=== PATIENT | male | born 1940 | race Caucasian/White ===

== ENCOUNTER 2016-12-14 09:11 | Inpatient (IN) ==
[2016-12-14] MEDS ORDERED: ZOFRAN ONE ×2 (09:30→13:17)
[2016-12-14] MEDS ORDERED: NS 1,000 ML ONE ×2 (09:30→14:47)
[2016-12-14] MEDS ORDERED: ZOFRAN IV ONE (09:58)
[2016-12-14] MEDS ORDERED: NS 1,000 ML IV ONE (09:58)
--- NOTE | 2016-12-14 09:58 | Diag Imaging Result Doc PS360 ---
EXAM: CHEST-1 VIEW HISTORY: sob TECHNIQUE: AP portable upright at 0950 COMMENT: The inspiration is less optimal than on 01/19/2015. Considering this, there has been no significant change in the appearance of the chest. No focal opacities are present. IMPRESSION: No evidence of acute disease. Electronically signed by Cody Rice 12/14/2016 9:56 AM
[2016-12-14 10:16] LABS: HEMATOCRIT 50.1 % (42.0-52.0); HEMOGLOBIN 16.8 g/dL (14.0-18.0); MANUAL DIFF NEEDED? YES; MCH 29.8 PG (27-31); MCHC 33.5 g/dL (33-37); MPV 13.1 FL (7.4-10.4); PLT 176 X1000 (130-400); RBC 5.63 XMIL (4.7-6.1)
[2016-12-14 10:26] LABS: ALBUMIN 4.6 g/dL (3.5-5.0); CALCIUM 10.8 mg/dL (8.8-10.2); POTASSIUM 4.9 mmol/L (3.5-5.1); TOTAL BILIRUBIN 0.88 mg/dL (0.20-1.00)
[2016-12-14 10:57] LABS: BANDS 4 % (0-1); LYMPHS 4 % (21-51); MONO 24 % (1-9)
--- NOTE | 2016-12-14 11:20 | PROVIDER DOCUMENTATION ---
This chart was entered by Gabby Dick Scribe, acting as scribe for Gordo Cotto MD. HPI-Abdominal Pain/GI Problem - General Chief Complaint: Nausea/Vomiting Stated Complaint: GENERAL Time Seen by Provider: 12/14/16 09:29 Source: patient Allergies/Adverse Reactions: Patient Allergies Allergy/AdvReac Type Severity Reaction Status Date / Time No Known Allergies Allergy Verified 02/07/16 01:53 Home Medications: Home Medication List Medication Instructions Recorded Confirmed Last Taken Type Gluc/Cb-MSM#1/C/Heri/Timothy/Bor 1 each PO DAILY 04/21/13 07/31/13 07/31/13 08:00 History [Osteo Bi-Flex Caplet] Dexter-3 Fatty Acids [Fish Oil] 500 mg PO DAILY 04/21/13 07/31/13 07/31/13 08:00 History Metoprolol Succinate E.r. [Toprol 25 mg PO DAILY 04/28/13 07/31/13 07/31/13 08: 00 History Xl] Albuterol [Albuterol Neb] 2.5 mg INH [id number] 07/31/13 07/31/13 07/31/13 14:00 History Doxycycline 100 mg PO BID #0 tablet 07/31/13 Unknown Rx Ipratropium [place] Neb [Atrovent 0.5 mg INH 4XDAY 07/31/13 07/31/13 07/31/13 14 :00 History Neb] Tamsulosin [Flomax] 0.4 mg PO DAILY 07/31/13 07/31/13 07/31/13 08:00 History - History of Present Illness-ABD Nature of Presenting Problems: 76 Y/O M presents to the ER with the complain of Nausea and vomiting X4 days. Pt states that he is not able keep anything down in his stomach. pt states that he is been constipated and took some laxatives 3 yesterday and 3 today and they did not helped him at all. pt denies any fever or any other symptoms. Onset/Duration: reports: 4 days ago Timing: reports: still present Associated Symptoms: reports: constipation, nausea, vomiting Review of Systems - Adult - REVIEW OF SYSTEMS - ADULT Constitutional: reports: no symptoms reported Eyes: reports: no symptoms reported Ears, Nose, Mouth & Throat: reports: no symptoms reported Cardiovascular: reports: irregular heart rate. denies: heart murmur Respiratory: reports: no symptoms reported Gastrointestinal: reports: abdominal pain (epigastric and mild RUQ and RLQ), constipation, nausea, vomiting Genitourinary: reports: no symptoms reported Musculoskeletal: reports: no symptoms reported Integumentary: reports: no symptoms reported Neurological: reports: no symptoms reported Psychiatric: reports: no symptoms reported Endocrine: reports: no symptoms reported Hematologic/Lymphatic: reports: no symptoms reported Allergic/Immunologic: reports: no symptoms reported All Other Systems: Reviewed and Negative Past History - Adult - PAST MEDICAL HISTORY-ADULT Review of Records: reports: Old Records Reviewed, Nursing Assessment Review - IMMUNIZATION STATUS Childhood Immunizations: See Nurse Assessment Flu Vaccine: See Nurse Assessment Physical Exam-General - PHYSICAL EXAM-ADULT Initial Vital Signs Reviewed: Yes - CONSTITUTIONAL General Appearance: appears well, alert - EYES Eyes: PERRL/EOMI, pink conjunctivae - NECK Neck: non-tender, full range of motion - RESPIRATORY Respiratory: no respiratory distress, no accessory muscle use - CARDIOVASCULAR Cardiovascular: irregularly irregular. negative: no edema, no murmur - GASTROINTESTINAL (ABDOMEN) Abdominal Exam: tenderness (epigastric amd mils to RUQ and RLQ). negative: guarding - MUSCULOSKELETAL Back Exam: no CVA tenderness, no vertebral tenderness Extremity: normal range of motion, non-tender - SKIN Integumentary: normal color, normal turgor, warm/dry - NEUROLOGIC Neurologic: grossly normal, no motor/sensory deficits - PSYCHIATRIC Psych/Mental Status: normal mood/affect, normal thought content, normal thought process, oriented x 3 Progress - PLAN OF CARE/RESULTS Progress/Plan/Lab Results: Vital Signs - 8 hr 12/14/16 09:14 Temperature 97.8 F Pulse Rate 96 H Respiratory Rate 20 Blood Pressure 130/71 O2 Sat by Pulse Oximetry 96 Orders Category Date Time Status 0.9% Sodium Chloride Inj [Ns] 1,000 ml Med 12/14/16 09:30 Discontinued .ROUTE As Directed Ondansetron [Zofran] Med 12/14/16 09:30 Discontinued 4 mg .ROUTE .STK-MED ONE Result Diagrams: 12/14/16 09:39 12/14/16 09:39 - EKG 1 Time of EKG reading by physician:: 10:18 EKG Read and Signed by:: Gordo Cotto EKG Interpretation (*Must complete 3 of following elements*): Abnormal Rate: 95 Rhythm: Atrila Fibrillation with premature venticular QRS: other Comments: Abnormal ECG - XRAY 1 XRAY: Bilateral XRAY Study: Chest Impression: Normal XRAY Interpretation: no evidence of acute disease by radiologist - CONSULTS/PCP/HOSPITALIST Notification #1 *Consult/PCP/Hospitalist*: Dr. Abreu Time Discussed: 11:14 Reason/Comments: Dr. Cotto consulted about the pt Departure - Departure Date of Disposition Decision: 12/14/16 Time of Disposition Decision: 11:18 DIAGNOSIS: Acute kidney injury (nontraumatic) Vomiting Qualifiers: Vomiting type: unspecified Vomiting Intractability: non-intractable Nausea presence: with nausea Qualified Code(s): R11.2 - Nausea with vomiting, unspecified Leukocytosis Qualifiers: Leukocytosis type: unspecified Qualified Code(s): D72.829 - Elevated white blood cell count, unspecified Disposition: ADMITTED INPATIENT 09 Certified Medical Emergency: Emergent Condition: Fair Referrals and Follow-Ups: Gavin Walker [Primary Care Provider] - - Critical Care Note This patient required my direct & personal management of CC.: No This chart was documented by the indicated scribe, (Gabby Dick, Cayla) and accurately reflects the services I performed and decisions made by me, Gordo Cotto MD, as attested by the provider's signature.
--- NOTE | 2016-12-14 11:23 | Diag Imaging Result Doc PS360 ---
EXAM: ABDOMEN/PELVIS W/O CONTRAST HISTORY: N/V, no BM TECHNIQUE: CT urogram without contrast COMMENT: There are no previous studies. There is apparent COPD and old granulomatous changes in the lung bases. There is a small right pleural effusion. There may be some fibrosis in the posterior costophrenic sulci. The stomach is markedly distended with fluid. There are multiple distended, fluid-filled small bowel loops throughout the abdomen. There is some gas and stool in the colon which is not distended. There is slight dilatation of the distal abdominal aorta and of the common iliac arteries particularly the right which measures 3 cm in diameter. There is no evidence of stones or hydronephrosis on the left. There are vascular calcifications in the renal arteries bilaterally. There are no definite calyceal stones on the right but there appears to be a stone in the right renal pelvis, less than 5 mm in diameter. There is no evidence of appendicitis. There is stool in the rectosigmoid colon. There is a right inguinal hernia containing small bowel loops. This demonstrates a normal or decreased caliber of the loop exiting the hernia and the in the terminal ileum. There is free fluid in the rectovesical pouch. There is calcification in the prostate gland which bulges into the base of the bladder. There are degenerative changes in the hips bilaterally and in the lumbar spine. IMPRESSION: Small bowel obstruction due to incarcerated right inguinal hernia. Small right pleural effusion. Right nephrolithiasis. Electronically signed by Cody Rice 12/14/2016 11:21 AM
[2016-12-14] MEDS ORDERED: ZOSYN 2.25 GM/NS 2.25 GM/50 ML IVPB IV SCH ×2 (11:45→12:00)
[2016-12-14 11:54] LABS: URINE CULTURE NEEDED? NO; URINE SOURCE CLEAN CATCH
[2016-12-14 11:59] LABS: BILIRUBIN URINE NEGATIVE (NEGATIVE); BLOOD URINE NEGATIVE (NEGATIVE); COLOR YELLOW; GLUCOSE URINE NEGATIVE (NEGATIVE); LEUKOCYTES URINE NEGATIVE (NEGATIVE); NITRITE URINE NEGATIVE (NEGATIVE); PROTEIN URINE 50 mg/dL (NEGATIVE); SP GRAVITY URINE 1.023; TURBIDITY URINE HAZY (CLEAR); UROBILINOGEN URINE NORMAL (NORMAL)
[2016-12-14 12:00] LABS: URINE MICRO REVIEW NEEDED? YES
[2016-12-14] MEDS ORDERED: DIPRIVAN 1% ONE (12:04)
[2016-12-14 12:05] LABS: INR 1.25; PROTIME 13.3 Seconds (9.2-11.7)
[2016-12-14] MEDS ORDERED: QUELICIN (DOSE) ONE (12:08)
[2016-12-14] MEDS ORDERED: ROBINUL ONE ×2 (12:08→13:18)
[2016-12-14] MEDS ORDERED: XYLOCAINE-MPF 2% ONE (12:08)
[2016-12-14 12:11] LABS: UR EPITHELIAL CELLS <10 /HPF (<10); URINE BACTERIA NEGATIVE /HPF; URINE CASTS GRANULAR PRESENT; URINE RBC <10 /HPF (<10); URINE WBC <10 /HPF (<10)
[2016-12-14 12:12] LABS: URINE CRYSTALS NONE SEEN; URINE SMALL ROUND CELLS NONE SEEN
[2016-12-14 12:14] LABS: PROTEIN CREAT RATIO 0.3; UR CREAT RANDOM 211.7 mg/dL (14-26); UR PROT RANDOM 72.1 mg/dL
[2016-12-14] MEDS ORDERED: NORCURON ONE (13:09)
[2016-12-14] MEDS ORDERED: STERILE WATER INJ. ONE (13:09)
[2016-12-14] MEDS ORDERED: SENSORCAINE 0.5%-EPI 1:200,000 ONE (13:12)
[2016-12-14] MEDS ORDERED: NEOSTIGMINE ONE (13:17)
[2016-12-14] MEDS ORDERED: DECADRON ONE (13:17)
[2016-12-14] MEDS ORDERED: SODIUM CHLORIDE 0.9% 10 ML ONE (13:21)
[2016-12-14] MEDS ORDERED: NEO-SYNEPHRINE ONE (13:21)
[2016-12-14 13:55] LABS: URINE SOURCE CATH
[2016-12-14 14:10] LABS: BILIRUBIN URINE NEGATIVE (NEGATIVE); BLOOD URINE NEGATIVE (NEGATIVE); COLOR YELLOW; GLUCOSE URINE NEGATIVE (NEGATIVE); LEUKOCYTES URINE NEGATIVE (NEGATIVE); NITRITE URINE NEGATIVE (NEGATIVE); PROTEIN URINE 50 mg/dL (NEGATIVE); SP GRAVITY URINE 1.024; TURBIDITY URINE HAZY (CLEAR); UROBILINOGEN URINE NORMAL (NORMAL)
[2016-12-14 14:12] LABS: URINE MICRO REVIEW NEEDED? YES
[2016-12-14 14:14] LABS: UR EPITHELIAL CELLS <10 /HPF (<10); URINE BACTERIA NEGATIVE /HPF; URINE RBC <10 /HPF (<10); URINE WBC <10 /HPF (<10)
[2016-12-14 14:18] LABS: URINE CASTS NONE SEEN
--- NOTE | 2016-12-14 15:53 | HISTORY AND PHYSICAL ---
PRIMARY CARE PHYSICIAN: Dr. Gavin Walker. SHEEPSKIN PICKLER: Dr. Diego Kwok. CHIEF COMPLAINT: Abdominal pain. HISTORY OF PRESENT ILLNESS: Mr. Pagan is a pleasant 76-year-old male with a history of BPH, COPD, and chronic atrial fibrillation who presents with a 4-day history of abdominal pain, nausea, and vomiting. He reports his symptoms started around Friday. He started having some vomiting, which progressed to some abdominal distention and abdominal pain, mostly in the right upper and lower quadrants. Symptoms persisted and he came to the ER today for evaluation. He denies any fever or chills. He denies any diarrhea, but does have some constipation despite trying some suppositories. He denies any shortness of breath or chest pain. He came to the ER, and he had labs and diagnostics done. A CT of the abdomen and pelvis revealed incarcerated inguinal hernia on the right. There was a small right pleural effusion and right nephrolithiasis. His laboratory data reveals a fairly elevated white count at 24.49. He does have some bands. His chemistry reveals acute kidney injury with a creatinine of 2.6 and a BUN of 67. He does have a mildly elevated alkaline phosphatase. Surgery has been consulted and the patient is going to be going to surgery today. In the meantime, we are going to admit him for further treatment and evaluation of incarcerated hernia and acute kidney injury. PAST MEDICAL HISTORY: 1. Chronic atrial fibrillation, not on anticoagulation. 2. COPD. 3. BPH. PAST SURGICAL HISTORY: Right knee arthroplasty and bilateral inguinal hernia repair. SOCIAL HISTORY: Patient quit smoking about 8 or 9 years ago. There is no alcohol or drug history. He is and lives with his son currently. REVIEW OF SYSTEMS: Fourteen-point review of systems was obtained and found to be negative with the exception of the HPI. ALLERGIES: None. HOME MEDICATIONS: Currently being compiled. PHYSICAL EXAMINATION: VITAL SIGNS: Blood pressure is 130/71. Heart rate is 96. Respiratory rate 20. O2 saturation 96% on room air. Temperature is 97.8 degrees. GENERAL: This is an elderly male, lying in the hospital bed in no acute distress. NEUROLOGIC: The patient is awake and alert. He follows commands without focal deficits. HEENT: Head is atraumatic and normocephalic. The sclerae are nonicteric. Oral mucosa is dry. Trachea is midline. NECK: Supple. CHEST: Clear to auscultation bilaterally. CARDIOVASCULAR: Irregular rate and rhythm. S1 and S2 noted. GASTROINTESTINAL: Slightly distended and tender to palpation diffusely, but mostly in the right upper and lower quadrants. Bowel sounds are hypoactive. EXTREMITIES: No edema, clubbing, or cyanosis. Pulses are diminished, but palpable bilaterally. DIAGNOSTIC DATA: CT of the abdomen and pelvis: Please see HPI. Chest x-ray shows COPD, but nothing acute. WBC 24.49, hemoglobin 16.8, hematocrit 50.1, and platelet count 176,000. Sodium 138, potassium 4.9, chloride 88, CO2 of 26, anion gap 24, BUN 67, creatinine 2.6 , glucose 170, calcium 10.8, AST 33, ALT 19, alkaline phosphatase 190, albumin 4.6. ASSESSMENT AND PLAN: 1. Incarcerated right inguinal hernia with associated small-bowel obstruction: Patient will be going to surgery with Dr. Watts today. We are going to give him IV fluids and start some antibiotics, as he has an elevated white count and is borderline tachycardic. We will keep him n.p.o., check an x-ray in the morning, and monitor closely. 2. Acute kidney injury: Last creatinine we have in 2012 shows a creatinine of 1.2. We are checking urine studies. CT does reveal a fairly large prostate that is calcified, so postobstructive uropathy is certainly possible, as is the possibility of prerenal azotemia. We are going to collect urine studies to check a FENa. There was no hydronephrosis on CT. Will hydrate and trend his creatinine. If no improvement, we may consider involving Nephrology and/or Urology. 3. Chronic atrial fibrillation: Rate is stable. We are getting a list of his medications. His son does state that he is not on anticoagulation. The patient denies any chest pain or shortness of breath. No palpitations. 4. Chronic obstructive pulmonary disease: Currently not in exacerbation. We will add p.r.n. nebs. Chest x-ray does not show any acute abnormalities. 5. Benign prostatic hypertrophy. Will start his Flomax tomorrow. 6. Deep vein thrombosis prophylaxis will be provided with SCDs and TEDs. Further recommendations to follow. Dictated by GOMEZ Chanel for Rashmi Lopez MD cc: GOMEZ Chanel MD Jay Pohl, MD Peter Johnson, MD The patient was seen and examined by me. I agree with the assessment and plan as dictated. MTDD
[2016-12-14] MEDS ORDERED: ZOFRAN IV PRN (16:22)
[2016-12-14] MEDS ORDERED: NS 1,000 ML IV SCH (16:22)
[2016-12-14] MEDS ORDERED: MORPHINE IV PRN (16:22)
--- NOTE | 2016-12-14 16:54 | OPERATIVE NOTE ---
PROCEDURE DATE: 12/14/2016 PROCEDURES: 1. Repair of strangulated right femoral hernia. 2. Small bowel resection with primary anastomosis. SURGEON: Anselmo Watts MD. COMMERCIAL CRABBER: Vicky. PREOPERATIVE DIAGNOSIS: Incarcerated right inguinal hernia with small-bowel obstruction. POSTOPERATIVE DIAGNOSIS: Strangulated right femoral hernia with small bowel obstruction. DESCRIPTION OF PROCEDURE: Satisfactory general endotracheal anesthesia was achieved. The abdomen and groin were prepped and draped in a sterile fashion. We made an oblique incision over the palpated mass in the right groin. We incised the subcutaneous tissue, dissected down to the hernia sac. The hernia appeared to come below the inguinal ligament. We incised the hernia sac and then inside was strangulated loop of small bowel. We enlarged the incision in the femoral canal enough to free up the loop of small bowel, so that we could deliver normal small bowel on each side of the strangulated section. We handed off the hernia sac. We clamped off the edge of the hernia sac so that we could identify the peritoneum. We then used a ISABELLE-60 to resect the strangulated segment. We clamped off the mesentery and ligated it with 3-0 silk suture ligatures. We then placed the end of the small bowel [id number], used a 3-0 silk to approximate the side-by- side. We cut off the corners and introduced the ISABELLE 60 and did a [id number] stapled anastomosis. The open end was clamped with Allis clamps and we then used a TA-45 to staple across the open end of the small bowel. We used 3-0 silks to invert this staple line. We then were able to reduce and place this stapled anastomosis back into the abdominal cavity through the femoral canal. We then proceeded to irrigate out the area with copious warm saline. I then used 0 Prolene stitches to approximate the tissue at the Wing's ligament, up to the inguinal ligament. This required a couple of stitches and then we transitioned to the firm tissue by the femoral vein and placed a couple of 0 Prolene stitches there. We did not compromise the femoral vein. Before we did this, I failed to mention that we did close the peritoneum with interrupted 3-0 Polysorb's, so we then used the Prolene's to the close the defect in the femoral canal. Again, we irrigated. We then placed 3-0 Polysorb to the subcutaneous tissue. We then closed the skin with a 4-0 Polysorb subcuticular stitch. We used 0.5 Marcaine with epinephrine in the subcutaneous tissue and dermis to achieve local wound anesthesia. He tolerated the procedure satisfactorily. Was sent to the recovery room in satisfactory condition. cc: MD Rashmi Reyes MD
[2016-12-14] MEDS: ZOSYN 2.25 GM/NS 2.25 GM/50 ML IVPB IV SCH (18:59)
[2016-12-14] MEDS: DUONEB (A & A) INH SCH ×2 (19:26→22:44)
[2016-12-14] MEDS: PERIDEX MT SCH (20:19)
[2016-12-14] MEDS ORDERED: BLISTEX MEDICATED BERRY LIP BALM TOP PRN (20:23)
[2016-12-14] MEDS ORDERED: PERIDEX MT SCH (21:00)
[2016-12-15] MEDS: ZOSYN 2.25 GM/NS 2.25 GM/50 ML IVPB IV SCH ×5 (00:26→23:07)
[2016-12-15] MEDS: NS 1,000 ML IV SCH ×4 (00:26→23:57)
[2016-12-15] MEDS: DUONEB (A & A) INH SCH ×6 (03:01→23:24)
[2016-12-15 06:09] LABS: CALCIUM 8.8 mg/dL (8.8-10.2); POTASSIUM 4.6 mmol/L (3.5-5.1)
[2016-12-15 06:36] LABS: HEMATOCRIT 40.7 % (42.0-52.0); HEMOGLOBIN 13.5 g/dL (14.0-18.0); MANUAL DIFF NEEDED? YES; MCH 29.3 PG (27-31); MCHC 33.2 g/dL (33-37); MCV 88.3 FL (81-99); MPV 13.4 FL (7.4-10.4); PLT 130 X1000 (130-400); RBC 4.61 XMIL (4.7-6.1)
[2016-12-15] MEDS ORDERED: VANCOMYCIN IV PER PHARMACY MISC SCH (07:00)
[2016-12-15 07:13] LABS: BANDS 2 % (0-1); LYMPHS 4 % (21-51); MONO 22 % (1-9)
[2016-12-15] MEDS: PERIDEX MT SCH ×2 (08:43→20:06)
--- NOTE | 2016-12-15 08:46 | Diag Imaging Result Doc PS360 ---
EXAM: ABDOMEN FLAT/UPRIGHT HISTORY: sbo TECHNIQUE: Flat and upright abdomen portable at 0820 COMMENT: There is an NG tube with its tip in the stomach. There are distended small bowel loops throughout the abdomen. There is minimal colonic gas but there is some gas in the rectum. The degree of small bowel dilatation has diminished slightly since 12/14/2016. IMPRESSION: Small bowel obstruction. Electronically signed by Cody Rice 12/15/2016 8:43 AM
[2016-12-15] MEDS ORDERED: VANCOMYCIN 1.75 GM in NS 250 ML IV ONE (09:00)
--- NOTE | 2016-12-15 17:56 | PROGRESS NOTE ---
DATE: 12/15/2016 SUBJECTIVE: The patient is resting comfortably in bed. His O2 saturations do drop when he is taken off of supplemental oxygen. OBJECTIVE: Vital Signs: Temperature 98.7 degrees, blood pressure 117/67, heart rate 114, respirations 20, O2 saturation is 86% on room air, 95% on 3 L nasal cannula. General: This is a chronically ill-appearing, elderly male, lying in bed, in no acute distress. Head: Normocephalic, atraumatic. Heart: S1, S2. Normal. Tachycardic. Lungs: Equal air entry bilaterally. No crackles. No rales. No wheezing. Abdomen: Positive bowel sounds. Soft. Extremities: No edema. No cyanosis. No calf tenderness. Neurologic: The patient is alert and oriented x3. The patient is hard of hearing. LABS: White blood cell count 16, hemoglobin 13, hematocrit 40 platelets 130,000. Sodium 138, potassium 4.6, chloride 97, CO2 32, BUN 64, creatinine 2.2, glucose 129, calcium 8.8. ASSESSMENT AND PLAN: 1. Repair of strangulated right femoral hernia with small bowel resection. Management as per the general surgeon. 2. Leukocytosis. Continue on IV antibiotic therapy. 3. Chronic obstructive pulmonary disease. Continue on bronchodilator therapy plus supplemental oxygen. 4. Acute kidney injury on chronic kidney disease. Continue with gentle IV fluid hydration. 5. Atrial fibrillation. Will keep the patient on telemetry. The patient is currently NPO. 6. Deep vein thrombosis prophylaxis. Continue on SCDs. cc: Rashmi Lopez MD
[2016-12-16] MEDS: DUONEB (A & A) INH SCH ×6 (03:32→23:16)
[2016-12-16] MEDS: ZOSYN 2.25 GM/NS 2.25 GM/50 ML IVPB IV SCH ×4 (05:42→23:51)
--- NOTE | 2016-12-16 05:56 | EKG Report ---
Test Performed on : 12/14/2016 10:18:21 AM Test Reason : CP Blood Pressure : / mmHG Vent. Rate : 095 BPM Atrial Rate : 110 BPM P-R Int : 000 ms QRS Dur : 100 ms QT Int : 350 ms P-R-T Axes : 000 090 -75 degrees QTc Int : 439 ms Atrial fibrillation. with premature ventricular or aberrantly conducted complexes. Rightward axis ST \T\ T wave abnormality, consider inferolateral ischemia Abnormal ECG When compared with ECG of 23-JAN-2016 12:00, Vent. rate has increased BY 53 BPM Non-specific change in ST segment in Anterior leads T wave inversion now evident in Inferior leads T wave inversion now evident in Anterolateral leads QT has lengthened Unconfirmed Result
[2016-12-16] MEDS: NS 1,000 ML IV SCH (06:27)
[2016-12-16 06:50] LABS: BASO% 0.6 % (0.0-0.8); HEMATOCRIT 38.2 % (42.0-52.0); HEMOGLOBIN 12.1 g/dL (14.0-18.0); LYMPH# 0.47 X1000 (1.2-3.4); LYMPH% 3.4 % (20.5-51.1); MCH 29.5 PG (27-31); MCHC 31.7 g/dL (33-37); MCV 93.2 FL (81-99); MONO% 39.9 % (1.7-9.3); MPV 13.4 FL (7.4-10.4); NEUT% 56.1 % (42.2-75.2); PLT 95 X1000 (130-400)
--- NOTE | 2016-12-16 06:55 | EKG Report ---
Test Performed on : 12/16/2016 06:29:39 AM Test Reason : afib Blood Pressure : / mmHG Vent. Rate : 090 BPM Atrial Rate : 250 BPM P-R Int : 000 ms QRS Dur : 106 ms QT Int : 382 ms P-R-T Axes : 000 082 -81 degrees QTc Int : 467 ms Atrial fibrillation. with premature ventricular or aberrantly conducted complexes. ST \T\ T wave abnormality, consider inferior ischemia Abnormal ECG When compared with ECG of 14-DEC-2016 10:18, (Unconfirmed) No significant change was found Confirmed by Lorie Morton MD ([id number]) on 12/16/2016 9:18:52 AM
[2016-12-16 07:00] LABS: CALCIUM 8.4 mg/dL (8.8-10.2); MAGNESIUM 2.5 mg/dL (1.5-2.7); POTASSIUM 4.1 mmol/L (3.5-5.1)
[2016-12-16 07:55] LABS: MANUAL DIFF NEEDED? NO
[2016-12-16] MEDS: PERIDEX MT SCH ×2 (08:25→23:51)
[2016-12-16] MEDS ORDERED: NORCO-10 PO PRN (10:44)
[2016-12-16] MEDS: D5 1/2 NS 1,000 ML IV SCH ×2 (10:59→23:54)
--- NOTE | 2016-12-16 15:52 | PROGRESS NOTE ---
DATE: 12/16/2016 SUBJECTIVE: The patient pulled out his NG tube overnight. He has no complaints at this time. He is resting comfortably in bed. OBJECTIVE: Vital Signs: Temperature 98 degrees, blood pressure 119/77, heart rate 95, respirations 18, O2 saturations 99% on 4 L nasal cannula. General: This is an elderly male, lying in bed, in no acute distress. Head: Normocephalic, atraumatic. Heart: S1, S2. Normal. Tachycardic. Lungs: Clear to auscultation bilaterally. Abdomen: Positive bowel sounds. Soft. Extremities: No edema. No cyanosis. No calf tenderness. Neurologic: The patient is alert and oriented x3. LABORATORY DATA: White blood cell count 13, hemoglobin 12, hematocrit 38, platelets 95,000. Sodium 147, potassium 4.1, chloride 105, CO2 32, BUN 52, creatinine 1.5, glucose 106, magnesium 2.5. ASSESSMENT AND PLAN: 1. Repair of strangulated right femoral hernia with small bowel obstruction. Management as per the general surgeon. 2. Leukocytosis. Improved. Continue on IV antibiotic therapy. 3. Chronic obstructive pulmonary disease. Continue with bronchodilator therapy. 4. Acute kidney injury on chronic kidney disease. Improving daily. Continue on IVF. 5. Hypernatremia. We will start the patient on D5 half-normal saline. 6. Thrombocytopenia. We will continue to monitor the patient's platelet count closely. The patient is not on any heparin products. 7. Atrial fibrillation. The patient is rate controlled. cc: Rashmi Lopez MD MTDD
[2016-12-17] MEDS: DUONEB (A & A) INH SCH ×6 (04:01→23:34)
[2016-12-17 06:10] LABS: HEMATOCRIT 40.5 % (42.0-52.0); HEMOGLOBIN 12.8 g/dL (14.0-18.0); MCH 29.8 PG (27-31); MCHC 31.6 g/dL (33-37); MCV 94.4 FL (81-99); MPV 13.7 FL (7.4-10.4); RBC 4.29 XMIL (4.7-6.1)
[2016-12-17 06:30] LABS: CALCIUM 8.3 mg/dL (8.8-10.2); POTASSIUM 4.1 mmol/L (3.5-5.1)
--- NOTE | 2016-12-17 06:36 | PROGRESS NOTE ---
DATE: 12/17/2016 SUBJECTIVE: The patient is somewhat confused over the night but no major issues. He had 3 bowel movements recorded. OBJECTIVE: Vital Signs: Patient is currently afebrile. His vital signs are stable. General: No acute distress but slightly confused. Cardiovascular: Regular rate and rhythm. Lungs: Grossly clear. Abdomen: Soft. Minimally distended. Groin: His groin incision is healing well. LABORATORY: None from this morning currently. He does have labs ordered that are pending. ASSESSMENT/PLAN: A 76-year-old, male status post repair of strangulated femoral hernia. Postoperative state: At this time, he does have some return of bowel function. He is denying any nausea but I am concerned that his mental status might be somewhat difficult to monitor. I will start normal clear liquids but I do want the nurses to monitor him and be present while he is eating to make sure he is actually able to tolerate and swallow without any signs of aspiration. cc: MD Rashmi Houston MD
[2016-12-17] MEDS: ZOSYN 2.25 GM/NS 2.25 GM/50 ML IVPB IV SCH ×3 (06:48→19:13)
[2016-12-17] MEDS: D5 1/2 NS 1,000 ML IV SCH ×3 (08:27→21:13)
[2016-12-17] MEDS: NEUTRA-PHOS PO SCH ×4 (08:29→21:12)
[2016-12-17] MEDS: PERIDEX MT SCH ×2 (08:53→21:13)
[2016-12-17] MEDS ORDERED: VANCOMYCIN 1.4 GM in NS 250 ML IV SCH (09:00)
--- NOTE | 2016-12-17 12:11 | PROGRESS NOTE ---
DATE: 12/17/2016 SUBJECTIVE: The patient is resting comfortably in bed. He was started on a clear liquid diet today. OBJECTIVE: Vital Signs: Temperature 98 degrees, blood pressure 116/70, heart rate 86, respirations 16, O2 saturations 97% on 2 L nasal cannula. General: This is an elderly man sitting up in bed eating breakfast. Heart: S1, S2 normal. Regular rate and rhythm. Lungs: Clear to auscultation bilaterally. No crackles. No rales. Abdomen: Positive bowel sounds. Soft, nontender, nondistended. Extremities: No edema. No cyanosis. No calf tenderness. Neurologic: The patient is alert and oriented x3. He is hard of hearing. LABS: White blood cell count 9, hemoglobin 12, hematocrit 40, platelets 107. Sodium 144, potassium 4.1, chloride 106, CO2 29, BUN 36, creatinine 1.2, glucose 117, phosphorus 1.7. ASSESSMENT AND PLAN: 1. Repair of a strangulated right femoral hernia with small bowel obstruction. Management as per the general surgeon. 2. Leukocytosis. Resolved. Continue on intravenous antibiotic therapy. 3. Acute kidney injury. Improved. 4. Chronic obstructive pulmonary disease. Continue on supplemental oxygen and bronchodilator therapy. 5. Thrombocytopenia. Stable. 6. Atrial fibrillation. Continue to monitor the patient on telemetry. The patient appears to be rate controlled. 7. Benign prostatic hypertrophy. Will restart the patient's Flomax. 8. Will consult physical therapy. cc: Rashmi Lopez MD
[2016-12-17] MEDS: FLOMAX PO SCH (21:13)
[2016-12-17 23:13] LABS: URINE CULTURE NEEDED? NO; URINE MICRO REVIEW NEEDED? NO; URINE SOURCE CATH
[2016-12-17 23:18] LABS: BILIRUBIN URINE NEGATIVE (NEGATIVE); BLOOD URINE TRACE (NEGATIVE); COLOR YELLOW; GLUCOSE URINE 150 mg/dL (NEGATIVE); LEUKOCYTES URINE NEGATIVE (NEGATIVE); NITRITE URINE NEGATIVE (NEGATIVE); PH URINE 6.5; PROTEIN URINE 30 mg/dL (NEGATIVE); SP GRAVITY URINE 1.026; TURBIDITY URINE CLEAR (CLEAR); UR EPITHELIAL CELLS <10 /HPF (<10); URINE BACTERIA NEGATIVE /HPF; URINE RBC <10 /HPF (<10); URINE WBC <10 /HPF (<10); UROBILINOGEN URINE NORMAL (NORMAL)
[2016-12-18] MEDS: ZOSYN 2.25 GM/NS 2.25 GM/50 ML IVPB IV SCH ×4 (01:52→18:47)
[2016-12-18] MEDS: DUONEB (A & A) INH SCH ×6 (03:39→22:51)
[2016-12-18 05:36] LABS: AGAP 8; BUN 25 mg/dL (8-22); CALCIUM 7.9 mg/dL (8.8-10.2); CHLORIDE 108 mmol/L (98-107); COSMO 290; POTASSIUM 4.1 mmol/L (3.5-5.1); SODIUM 143 mmol/L (136-145); TCO2 27 mmol/L (25-35)
[2016-12-18] MEDS ORDERED: SODIUM PHOSPHATE 30 MMOL in NS 250 ML IV ONE (06:00)
[2016-12-18 06:21] LABS: BASO% 0.2 % (0.0-0.8); EOS# 0.08 X1000 (0.0-0.7); EOS% 0.9 % (0.0-10.0); HEMATOCRIT 37.5 % (42.0-52.0); HEMOGLOBIN 12.1 g/dL (14.0-18.0); IMM GRAN# 0.13 X1000 (0.0-0.04); IMM GRAN% 1.5 % (0.0-0.5); LYMPH# 1.02 X1000 (1.2-3.4); LYMPH% 11.7 % (20.5-51.1); MANUAL DIFF NEEDED? YES; MCH 29.5 PG (27-31); MCHC 32.3 g/dL (33-37); MCV 91.5 FL (81-99); MONO# 2.24 X1000 (0.11-0.59); MONO% 25.7 % (1.7-9.3); MPV 12.6 FL (7.4-10.4); PLT 127 X1000 (130-400)
[2016-12-18] MEDS: D5 1/2 NS 1,000 ML IV SCH ×2 (06:31→10:29)
[2016-12-18 07:27] LABS: EOS 2 % (1-10); LYMPHS 6 % (21-51); MONO 22 % (1-9)
[2016-12-18] MEDS: TOPROL XL PO SCH ×2 (08:41→08:56)
[2016-12-18] MEDS: PERIDEX MT SCH ×2 (08:42→20:05)
--- NOTE | 2016-12-18 13:22 | CONSULTATION ---
DATE OF CONSULTATION: 12/18/2016 CONCLUSION: The patient has a positive blood culture for Streptococcus parasanguis and a coagulase-negative Staphylococcus. I think this blood culture is a contaminant. RECOMMENDATIONS: Because the blood culture is a contaminant no antibiotic therapy is indicated. DISCUSSION: The patient is status post repair of the strangulated right femoral hernia and small bowel resection with primary repair. He had 2 blood cultures drawn 1 of which showed the organisms mentioned above. The patient has been afebrile and his white count has been normal. He has not had any shaking chills. Patient's lab studies show a CBC with a white count of 8700, hemoglobin 12.1, and platelet count 127,000. Creatinine is 0.9. GFR is greater than 60. Urinalysis showed no white cells or bacteria. REVIEW OF SYSTEMS: Eyes and Ears: The patient has decreased hearing but his vision is still good. Neck: No stiffness. Respiratory: The patient does have an occasional cough and dyspnea on exertion due to COPD. Cardiac: No chest pain or palpitations. GI : The patient was having difficulty passing his stool due to the strangulated hernia but since it has been fixed he has been able to pass his bowel movements. Genitourinary: The patient has difficulty passing his urine and it is thought to be secondary to benign prostatic hypertrophy. Bones, joints, muscles: No swollen joints or muscle aches. Endocrine: Patient does not have diabetes or thyroid disease. Neurologic: The patient has decreased hearing. He does not have seizures. He does not have dizzy spells or motor or sensory loss. Integument: No rashes. The remainder of the patient's review of systems was completed and was negative. PREVIOUS HOSPITALIZATIONS AND OPERATIONS: He has had hernia repairs in the past. He has also had a total knee arthroplasty. MEDICAL DISEASES: Positive for benign prostatic hypertrophy and COPD. INFECTIOUS DISEASE HISTORY: Negative for pneumonia and UTI. FAMILY HISTORY: Positive for hypertension and cancer. SOCIAL HISTORY: The patient lives in [place]. His granddaughter lives with him. HOME MEDICATIONS: Include Atrovent inhaler, albuterol inhaler, and Flomax. SOCIAL HISTORY: Stopped smoking cigarettes 7 years ago. He does not drink alcoholic beverages or abuse drugs. He does not have any pets at home. PHYSICAL EXAMINATION: Vital Signs: Temperature is 97.8 degrees, pulse 85, respirations 16, blood pressure 111/57. Generally: This is a fairly healthy-appearing, elderly male. He is in no acute distress. Head, eyes, ears, nose, and throat: His vision seems intact. He has a decrease in his hearing. His oral hygiene was good. Neck: No meningismus. Thorax: Patient has an increased AP diameter. Lungs: Clear to auscultation. Cardiovascular: Heart rate is irregular. Peripheral pulses are palpable. Abdomen: Soft and nontender. The patient's incision in the groin area is intact. Neurologic: Patient is awake. He can move his extremities. There is no tremor. His sensation is intact to touch. I was unable to evaluate the patient's memory because he wanted his son to do the talking for him as regarding his medical history. Integument: No rash noted. Thank you for the consult. I am signing off now but I am available to see the patient on a p.r.n. basis. cc: MD Rashmi Browne MD MTDD
--- NOTE | 2016-12-18 14:28 | PROGRESS NOTE ---
DATE: 12/18/2016 SUBJECTIVE: The patient states that he feels a lot better today. He is sitting up, eating breakfast. He was noted to be retaining urine and a Veloz catheter was placed. OBJECTIVE: Vital Signs: Temperature 98.6 degrees, blood pressure 111/57, heart rate 78, respirations 14, O2 saturations 95% on 2 L nasal cannula. General: This is an elderly male, sitting up in bed, in no acute distress. Head: Normocephalic, atraumatic. Heart: S1, S2. Normal. Regular rate and rhythm. Lungs: Clear to auscultation bilaterally. Abdomen: Positive bowel sounds. Soft, nontender, nondistended. Extremities: No edema. No cyanosis. Neurologic: The patient is hard of hearing, but alert and oriented x3. LABS: White blood cell count 8.7, hemoglobin 12, hematocrit 37, platelets 127, 000. Sodium 143, potassium 4.1, chloride 108, CO2 27, BUN 25, creatinine 0.9, glucose 113. Phosphorus 1.4, magnesium 1.9. ASSESSMENT AND PLAN: 1. Repair of a strangulated right femoral hernia with small bowel obstruction. The patient is doing well and tolerating his diet. Further management as per the general surgeon. 2. Leukocytosis. Resolved. 3. Acute kidney injury. Resolved. 4. Benign prostatic hypertrophy. The patient has a Veloz catheter in place due to urinary retention. We will place the patient on Uroxatral. The patient may require outpatient Urology followup upon discharge. 5. Atrial fibrillation. The patient is rate controlled. 6. Bacteremia. This is a contaminant. 7. Hypophosphatemia. Will replace the patient's phosphorus. 8. Continue with physical therapy. cc: Rashmi Lopez MD [facility] HEALTH SYSTEMBalbir
[2016-12-18] MEDS: FLOMAX PO SCH (20:05)
[2016-12-18] MEDS: UROXATRAL PO SCH (20:05)
[2016-12-19] MEDS: ZOSYN 2.25 GM/NS 2.25 GM/50 ML IVPB IV SCH ×5 (00:39→18:33)
[2016-12-19] MEDS: D5 1/2 NS 1,000 ML IV SCH ×3 (00:40→21:12)
[2016-12-19] MEDS: DUONEB (A & A) INH SCH ×6 (03:46→23:18)
[2016-12-19 06:27] LABS: BASO% 0.1 % (0.0-0.8); EOS# 0.07 X1000 (0.0-0.7); HEMATOCRIT 37.3 % (42.0-52.0); HEMOGLOBIN 11.9 g/dL (14.0-18.0); IMM GRAN# 0.15 X1000 (0.0-0.04); IMM GRAN% 2.1 % (0.0-0.5); LYMPH# 0.77 X1000 (1.2-3.4); LYMPH% 10.8 % (20.5-51.1); MANUAL DIFF NEEDED? YES; MCH 28.9 PG (27-31); MCHC 31.9 g/dL (33-37); MCV 90.5 FL (81-99); MONO# 2.31 X1000 (0.11-0.59); MONO% 32.4 % (1.7-9.3); MPV 12.7 FL (7.4-10.4); NEUT% 53.6 % (42.2-75.2); PLT 159 X1000 (130-400); RBC 4.12 XMIL (4.7-6.1)
[2016-12-19 06:32] LABS: AGAP 6; ALBUMIN 2.8 g/dL (3.5-5.0); BUN 19 mg/dL (8-22); CALCIUM 7.5 mg/dL (8.8-10.2); CHLORIDE 109 mmol/L (98-107); COSMO 284; POTASSIUM 4.2 mmol/L (3.5-5.1); SODIUM 141 mmol/L (136-145); TCO2 26 mmol/L (25-35)
[2016-12-19 07:21] LABS: BANDS 6 % (0-1); EOS 2 % (1-10); LYMPHS 14 % (21-51); MONO 18 % (1-9)
[2016-12-19] MEDS: PERIDEX MT SCH ×2 (10:16→21:13)
[2016-12-19] MEDS: TOPROL XL PO SCH (10:17)
--- NOTE | 2016-12-19 10:17 | Diag Imaging Result Doc PS360 ---
FLAT/UPRIGHT ABD/1 VIEW CHEST - 12/19/2016 INDICATION: post bowel resection for strangulation TECHNIQUE: Three views COMPARISON: 12/15/2016 FINDINGS: There are probably trace pleural effusions. Otherwise the chest is quite clear. There are surgical suture lines at the right lower quadrant. There are numerous abnormally gas-distended loops of small bowel. Overall the caliber has decreased somewhat compared with prior, and now there is some gas throughout the colon and rectum. However the distended small bowel loops remain abnormal. IMPRESSION: Improvement in the proximal small bowel obstruction, with persistent abnormally dilated small bowel loops. Electronically signed by Cali Sanchez 12/19/2016 10:14 AM
--- NOTE | 2016-12-19 12:16 | PROGRESS NOTE ---
DATE: 12/19/2016 SUBJECTIVE: The patient is very hard of hearing. Patient reports feeling fine. Sitting up in a chair now. Eating okay. OBJECTIVE: Vital Signs: Temperature 97.6, heart rate 86, respiratory rate 20, blood pressure 120/60, O2 saturation 98% on room air. General Examination: This is a 76-year-old male, lying in bed, in no acute distress. HEENT: Head is normocephalic, atraumatic. Anicteric sclerae and pale conjunctivae. Mucous membranes moist. Neck: Supple. No JVD noted. No carotid bruits. Cardiovascular: S1, S2 heard. Regular rate and rhythm. Respiratory: Clear bilaterally to auscultation. No work of breathing or using accessory muscles. Abdomen: Soft. Nontender to palpation. Bowel sounds present. No organomegaly. Extremities: No clubbing, cyanosis, or edema. Peripheral pulses present in both legs. Neurological: Patient alert and oriented x3. Able to move 4 extremities. Cranial nerves 2 through 12 grossly normal. LABORATORY DATA: White cell count 7.12, hemoglobin 11.9, hematocrit 37.3, platelets 159,000. BMP unremarkable. ASSESSMENT AND PLAN: 1. Status post repair of strangulated right femoral hernia with small bowel obstruction. Patient is doing fine. General surgery is following this patient. Abdomen x-ray from today has shown improvement of this condition. General surgery is following this patient. 2. Acute kidney injury, resolved. 3. Benign prostatic hypertrophy. Yesterday he developed urinary retention so it was needed to place a Veloz catheter. The patient has been started on Uroxatral. The patient will need to be seen by a urologist as an outpatient. 4. Atrial fibrillation, rate controlled. Will continue home medications. 5. Hypophosphatemia, resolved. 6. Physical deconditioning. Physical therapy working with this patient. 7. If tomorrow the patient is doing fine and eating okay he will be discharged home with home health. cc: MD Rashmi Us MD
[2016-12-19] MEDS: UROXATRAL PO SCH (21:13)
[2016-12-19] MEDS: FLOMAX PO SCH (21:13)
[2016-12-19] MEDS ORDERED: NS IV ONE (23:28)
[2016-12-19] MEDS ORDERED: SODIUM PHOSPHATE IV ONE (23:28)
[2016-12-20] MEDS: ZOSYN 2.25 GM/NS 2.25 GM/50 ML IVPB IV SCH ×2 (00:05→06:25)
[2016-12-20] MEDS: DUONEB (A & A) INH SCH ×4 (03:22→17:53)
[2016-12-20] MEDS: PERIDEX MT SCH (08:32)
[2016-12-20] MEDS: TOPROL XL PO SCH (08:34)
[2016-12-20] MEDS ORDERED: SALINE LOCK IV FLUID XX ONE (10:41)
[2016-12-20 13:41] VITALS: BP 106/59
--- NOTE | 2016-12-22 16:12 | DISCHARGE SUMMARY ---
ADMISSION DATE: 12/14/2016 DISCHARGE DATE: 12/20/2016 PERTINENT PROCEDURES: 1. Abdomen and pelvis CT showed small bowel obstruction due to incarcerated right inguinal hernia, right pleural effusion, right nephrolithiasis. 2. Underwent repair of a strangulated right femoral hernia and small bowel resection with primary anastomosis performed by Dr. Anselmo Watts. 3. Abdominal x-ray showed improvement of the proximal small bowel obstruction with persistent abnormality, dilated small bowel loops. DISCHARGE DIAGNOSES: 1. Status post repair of strangulated right femoral hernia with small bowel obstruction improved. Being discharged home today. 2. Acute kidney injury resolved. 3. Benign prostatic hypertrophy. Continue with Uroxatral and follow up outpatient with urologist. 4. Atrial fibrillation, rate controlled. Continue with metoprolol. 5. Hypophosphatemia resolved. 6. Physical deconditioning. Patient worked with physical therapy. He is going to be discharged home with [facility]. HOSPITAL COURSE: Mr. Pagan is a 76-year-old male with a history of BPH, COPD , chronic atrial fibrillation who presented with a 4-day history of abdominal pain, nausea and vomiting. He started having some vomiting that progressed to abdominal distention, abdominal pain mostly in the right lower quadrant. His symptoms persisted so he came to the ED for evaluation. A CT of the abdomen and pelvis revealed incarcerated inguinal hernia on the right with a small right pleural effusion, right nephrolithiasis. His laboratory data revealed a fairly elevated white count of 24. Chemistry revealed acute kidney injury with creatinine of 2.4 and BUN 67 as well as mildly elevated alkaline phosphatase. General Surgery was consulted. He was started on IV fluids as well as IV antibiotics. He did undergo a repair of a strangulated right femoral hernia with small bowel resection with primary anastomosis by Dr. Anselmo Watts. Abdominal x-ray continued to showed small bowel obstruction. A follow-up abdominal x-ray showed improvement in the proximal small bowel obstruction with persistent abnormally dilated small bowel loops. Initially the patient was thought to be bacteremic, however, the blood culture was a contaminant so no antibiotic therapy was indicated. Dr. Kennedy Pires signed off on the case. The patient did have some urinary retention where they had to place a Veloz. He was continued on his home BPH medications as well as added Uroxatral. He will need to follow up with the urologist as outpatient. The patient has been working with Physical Therapy. He will be discharged home with [facility]. He is tolerating his diet. Dr. Rodriguez is discharging the patient home today. VITAL SIGNS ON DISCHARGE: Temperature is 98.3 degrees, heart rate 59, respirations 16, blood pressure is 130/77, O2 is 100% on room air. DISCHARGE DIET: Mechanical soft. DISCHARGE MEDICATIONS: 1. , 1 each p.o. q.4 hours p.r.n. pain. 2. Albuterol nebulizer 2.5 mg inhaled RT q.4 hours p.r.n. 3. Uroxatral 10 mg p.o. at bedtime. 4. Atrovent nebulizer 0.5 mg inhaled 4 times a day. 5. Toprol-XL 25 mg p.o. daily with instructions to hold medication if heart rate is less than 60 or systolic blood pressure is less than 100. 6. Flomax 0.4 mg p.o. daily. DISPOSITION: The patient is being discharged home. FOLLOWUP: He will follow up with his primary care physician, Dr. Gavin Walker, as well as seeing a urologist as an outpatient. The patient can return to the ED for any worsening of symptoms. TOTAL TIME SPENT ON DISCHARGE: 34 minutes. Dictated by GOMEZ Cotto for Bala William MD cc: MD Bala Castillo MD Katherine Takundwa, MD MTDD
== END 2016-12-20 16:08 | disposition home or self-care (01) ==
LOC: SUATTDRO → ED 09:11 → SUATTDRO 17:43 → 4N 17:43
PROVIDERS: ADMIT Internal Medicine; ATTEND Internal Medicine

== ENCOUNTER 2018-07-21 08:49 | Inpatient (IN) ==
[2018-07-21] MEDS ORDERED: NS 1,000 ML IV ONE ×3 (09:01→11:59)
[2018-07-21] MEDS ORDERED: NS 500 ML IV ONE (09:02)
[2018-07-21] MEDS ORDERED: VANCOMYCIN 1 GM/NS 1 GM/250 ML IVPB IV ONE (09:02)
[2018-07-21] MEDS ORDERED: VERSED IV ONE ×2 (09:09→11:25)
[2018-07-21] MEDS ORDERED: NORCURON IV ONE ×3 (09:10→11:25)
[2018-07-21] MEDS ORDERED: NORCURON ONE (09:13)
[2018-07-21] MEDS ORDERED: VERSED ONE (09:13)
--- NOTE | 2018-07-21 09:13 | PROVIDER DOCUMENTATION ---
HPI-General Adult - General Chief Complaint: Altered Mental Status Stated Complaint: WEAKNESS Time Seen by Provider: 07/21/18 09:01 Source: family Allergies/Adverse Reactions: Patient Allergies Allergy/AdvReac Type Severity Reaction Status Date / Time No Known Allergies Allergy Verified 06/05/17 01:01 Home Medications: Home Medication List Medication Instructions Recorded Confirmed Last Taken Type NK [No Home Medications] 06/05/17 06/05/17 Unknown History - History of Present Illness -Gen Adult Nature of Presenting Problems: Patient is a 78 year old white male who presents with unresponsiveness and respiratory distress. Fingerstick glucose is normal. No reported chest pain, fever, or seizure activity. Followed by Dr. Walker. Review of Systems - Adult - REVIEW OF SYSTEMS - ADULT ROS:: limited per condition Constitutional: reports: see HPI Past History - Adult - PAST MEDICAL HISTORY-ADULT Review of Records: reports: Old Records Reviewed, Nursing Assessment Review, Medications Reviewed, Social history reviewed & non-contributory. Major Childhood Illnesses: reports: denies history Cardiovascular: reports: denies history Respiratory: reports: COPD Gastrointestinal: reports: denies history Obstetrical/Gynecological: reports: denies history Genitourinary: reports: denies history Musculoskeletal: reports: denies history Neurological: reports: denies history Psychiatric: reports: denies history Endocrine/Immune: reports: denies history Other Conditions: reports: denies history - PRIOR SURGERIES/PROCEDURES Surgical/Procedure History: reports: reviewed, not pertinent - IMMUNIZATION STATUS Childhood Immunizations: See Nurse Assessment Flu Vaccine: See Nurse Assessment - FAMILY HISTORY Family History: reviewed, not pertinent Physical Exam-General - CONSTITUTIONAL General Appearance: other (initially unreponsive with labored shallow respirations) - EYES Eyes: other (unequal irregular pupils) - HEAD, EARS, NOSE, MOUTH & THROAT HENMT: other (clear) - NECK Neck: supple - RESPIRATORY Respiratory: decreased breath sounds, other (bilateral rhonchi R.L) - CARDIOVASCULAR Cardiovascular: regular rate, rhythm - GASTROINTESTINAL (ABDOMEN) Abdominal Exam: soft. negative: guarding, rebound - LYMPHATIC Lymphatic: no adenopathy - MUSCULOSKELETAL Back Exam: no CVA tenderness Extremity: non-tender Peripheral Pulses: radial (R): 1+, radial (L): 1+ - SKIN Integumentary: other (decreased turgor) - NEUROLOGIC Neurologic: other (nonfocal, uncooperative to exam) Progress - PLAN OF CARE/RESULTS Progress/Plan/Lab Results: Vital Signs - 8 hr 07/21/18 09:00 07/21/18 09:02 07/21/18 09:05 Pulse Rate 113 H 106 H 102 H Respiratory Rate 33 H 33 H 37 H Blood Pressure 131/54 118/66 O2 Sat by Pulse Oximetry 77 L Orders Category Date Time Status Veloz Cath Insertion ORDERED Care 07/21/18 09:02 Active IV Insertion ORDERED Care 07/21/18 09:02 Active Intake and Output-Strict ORDERED Care 07/21/18 09:02 Active Notify MD/PA/GOMEZ for exam NOW Care 07/21/18 09:02 Active RT [Respiratory Therapy Evaluation] ORDERED Care 07/21/18 09:05 Active Repeat Vital Signs .Blood Pressure Care 07/21/18 09:02 Active Repeat Vital Signs .Heart Rate Care 07/21/18 09:02 Active Repeat Vital Signs .Oxygen Saturation Care 07/21/18 09:02 Active Repeat Vital Signs .Respiratory Rate Care 07/21/18 09:02 Active Repeat Vital Signs .Temp Care 07/21/18 09:02 Active Saline Loc NOW Care 07/21/18 09:01 Active CHEST-PORTABLE [RAD] Stat Exams 07/21/18 09:[address] HEAD W/O CONTRAST [CT] Stat Exams 07/21/18 09:12 Ordered ABG [RESP] Routine Lab 07/21/18 09:01 Ordered BLOOD CULTURE [BLDCUL] Stat Lab 07/21/18 09:06 Ordered CBC WITH DIFF [HEME] Stat Lab 07/21/18 09:06 Ordered COMPREHENSIVE METABOLIC PANEL [CHEM] Stat Lab 07/21/18 09:06 Ordered LACTATE, PLASMA [CHEM] Stat Lab 07/21/18 09:06 Ordered LACTATE, PLASMA [CHEM] Timed Lab 07/21/18 09:02 Ordered PRO B-NATRIURETIC PEPTIDE Stat Lab 07/21/18 09:06 Ordered TROPONIN T Stat Lab 07/21/18 09:03 Ordered 0.9% Sodium Chloride Inj [Ns] 1,000 ml Med 07/21/18 09:01 Active IV 999 mls/hr 0.9% Sodium Chloride Inj [Ns] 1,000 ml Med 07/21/18 09:02 Discontinued IV As Directed 0.9% Sodium Chloride Inj [Ns] 100 ml Med 07/21/18 09:15 Discontinued Vasopressin [Pitressin] 40 unit IV As Directed 0.9% Sodium Chloride Inj [Ns] 500 ml Med 07/21/18 09:02 Discontinued IV 999 mls/hr 0.9% Sodium Chloride Inj [Ns] 80 ml Med 07/21/18 09:15 Ordered Midazolam [Versed] 100 mg IV As Directed Dextrose 5%-0.45% NaCl Inj [D5 1/2 Ns] 250 ml Med 07/21/18 09:15 Active Norepinephrine [Levophed] 8 mg IV As Directed Dextrose 5%-Water Inj [D5w] 250 ml Med 07/21/18 09:15 Active Epinephrine 8 mg IV As Directed Midazolam [Versed] Med 07/21/18 09:09 Discontinued 5 mg IV NOW ONE Vancomycin 1 gm/Ns Med 07/21/18 09:02 Active 1 gm in 250 ml IV NOW Vecuronium [Norcuron] Med 07/21/18 09:10 Discontinued 70 mg IV NOW ONE Pulse Oximetry Stat Oth 07/21/18 09:01 Active patients neurologic status improved dramatically , now awake and alert, no longer needs intubation but will start BIPAP Result Diagrams: 07/21/18 09:00 07/21/18 09:00 - CONSULTS/PCP/HOSPITALIST Notification #1 *Consult/PCP/Hospitalist*: MARTIN Caro report given Time Discussed: 10:30 Reason/Comments: admit to Dr. Rodriguez Consult Disposition: Admit Departure - Departure Date of Disposition Decision: 07/21/18 Time of Disposition Decision: 10:37 DIAGNOSIS: Thrombocytopenia Altered mental state Qualifiers: Altered mental status type: unspecified Qualified Code(s): R41.82 - Altered mental status, unspecified Leukocytosis Qualifiers: Leukocytosis type: unspecified Qualified Code(s): D72.829 - Elevated white blood cell count, unspecified Disposition: ADMITTED INPATIENT 09 Certified Medical Emergency: Emergent Condition: Critical Referrals and Follow-Ups: Gavin Walker MD [Primary Care Provider] - - Critical Care Note This patient required my direct & personal management of CC.: No Attestation - Physician/ GERALDO Attestation Patient care was provided by Advanced Practice Provider:: No The physician spent face to face time with patient:: Yes Advanced Practice Provider documentation review:: Supervising physician onsite and consulted in the evaluation and care of this patient. The physician did have a face to face encounter with the patient.
[2018-07-21] MEDS ORDERED: EPINEPHRINE 8 MG in D5W 250 ML IV SCH (09:15)
[2018-07-21] MEDS ORDERED: LEVOPHED 8 MG in D5 1/2 NS 250 ML IV SCH (09:15)
[2018-07-21] MEDS ORDERED: PITRESSIN 40 UNIT in NS 100 ML IV SCH (09:15)
[2018-07-21 09:28] LABS: ALLEN TEST YES; BE -9.5 mmoll (-3.0-3.0); BLOOD TYPE ARTERIAL; HCO3-(ACT) 17.4 mmoll (20.0-26.0); METHB 0.9 % (0.0-1.5); O2(CT) 16.5 mL/dL (15.0-23.0); O2HB 91.3 % (95.0-99.0); PCO2(98.6) 42 mmHg (35-45); PO2(98.6) 80 mmHg (60-100); SAMPLE BLOOD; THB 12.8 g/dL (11.5-17.4); pH(98.6) 7.23 (7.35-7.45)
[2018-07-21 09:29] LABS: MODALITY CANNULA
--- NOTE | 2018-07-21 09:34 | Diag Imaging Result Doc PS360 ---
EXAM: CHEST-PORTABLE HISTORY: cough TECHNIQUE: Chest single view COMPARISON: 06/05/2017 FINDINGS: The lungs are well expanded. The heart is not enlarged. The vessels are not distended. There are mild increased interstitial markings in the lower lungs on the current exam. No effusion identified. IMPRESSION: Small basilar infiltrates. Electronically signed by Crescencio Atwood 07/21/2018 9:29 AM
[2018-07-21 09:39] LABS: INR 1.69; PROTIME 21.2 Seconds (11.0-16.0)
[2018-07-21 09:50] LABS: ALB/GLOB RATIO 1.5; ALBUMIN 4.3 g/dL (3.5-5.0); CALCIUM 9.4 mg/dL (8.8-10.2); CREATININE 1.9 mg/dL (0.7-1.2); POTASSIUM 5.4 mmol/L (3.5-5.1); TOTAL BILIRUBIN 0.71 mg/dL (0.20-1.00); TOTAL PROTEIN 7.2 g/dL (6.3-8.3)
[2018-07-21 09:55] LABS: HEMATOCRIT 41.2 % (42.0-52.0); HEMOGLOBIN 13.1 g/dL (14.0-18.0); MCH 28.7 PG (27-31); MCHC 31.8 g/dL (33-37); MCV 90.2 FL (81-99); MPV 11.8 FL (7.4-10.4); PLT 56 X1000 (130-400); RBC 4.57 XMIL (4.7-6.1); RDW 18.6 % (11.5-14.5); WBC 52.81 X1000 (4.8-10.8)
[2018-07-21 10:02] LABS: BANDS 5 % (0-1); LYMPHS 4 % (21-51); MONO 1 % (1-9); SEGS 17 % (42-75)
[2018-07-21 10:03] LABS: HYPOCHROM 1+
--- NOTE | 2018-07-21 10:06 | ED EKG INTERP ---
This chart was entered by Minda Rosales Scribe, acting as scribe for Gil Bruno MD. EKG Interpretation - EKG Time of EKG reading by physician:: 08:51 EKG Read and Signed by:: Gil Bruno EKG Interpretation (*Must complete 3 of following elements*): Abnormal Rate: 56 Rhythm: undetermined [place]: normal QRS: RBB MS Interval: normal ST Wave: normal Attestation - Physician/ GERALDO Attestation Patient care was provided by Advanced Practice Provider:: No The physician spent face to face time with patient:: Yes Advanced Practice Provider documentation review:: Supervising physician onsite and consulted in the evaluation and care of this patient. The physician did have a face to face encounter with the patient. This chart was documented by the indicated scribe, (Minda Rosales Scribe) and accurately reflects the services I performed and decisions made by me, Gil Bruno MD, as attested by the provider's signature.
[2018-07-21] MEDS ORDERED: ROCEPHIN 1 GM in NS 50 ML IV ONE (10:16)
[2018-07-21] MEDS ORDERED: ATIVAN IV ONE (10:28)
[2018-07-21] MEDS ORDERED: ATIVAN ONE (10:30)
--- NOTE | 2018-07-21 10:48 | Diag Imaging Result Doc PS360 ---
CT HEAD W/O CONTRAST - 07/21/2018 INDICATION: AMS,respiratory failure COMPARISON: None FINDINGS: The ventricles and sulci are normal in size and contour. No intracranial mass or hemorrhage. The skull is intact. The sinuses mastoids and middle ears are clear. IMPRESSION: Negative exam. This exam was performed using automated exposure control, adjustment of mA or kV according to patient size, and/or use of iterative reconstruction technique Electronically signed by Cali Sanchez 07/21/2018 10:44 AM
[2018-07-21] MEDS ORDERED: NS 250 ML IV ONE (10:58)
[2018-07-21] MEDS ORDERED: ZOSYN 2.25 GM in NS 50 ML IV SCH (11:00)
[2018-07-21] MEDS ORDERED: DIPRIVAN 1% IV ONE (11:29)
[2018-07-21] MEDS ORDERED: VERSED 100 MG in NS 80 ML IV SCH (11:30)
[2018-07-21] MEDS ORDERED: DIPRIVAN 1% 1,000 MG/100 ML BOTTLE IV SCH (11:30)
[2018-07-21 11:43] LABS: URINE SOURCE CATH
[2018-07-21 11:56] LABS: BILIRUBIN URINE NEGATIVE (NEGATIVE); BLOOD URINE SMALL (NEGATIVE); COLOR ORANGE; GLUCOSE URINE NEGATIVE (NEGATIVE); KETONE URINE NEGATIVE (NEGATIVE); LEUKOCYTES URINE NEGATIVE (NEGATIVE); NITRITE URINE NEGATIVE (NEGATIVE); PH URINE 5.5; PROTEIN URINE 100 mg/dL (NEGATIVE); SP GRAVITY URINE 1.019; TURBIDITY URINE TURBID (CLEAR); UROBILINOGEN URINE NORMAL (NORMAL)
[2018-07-21] MEDS ORDERED: SODIUM CHLORIDE 0.9% INJ SCH (11:59)
[2018-07-21] MEDS ORDERED: PROTONIX IV SCH (11:59)
[2018-07-21] MEDS ORDERED: XOPENEX NEB INH PRN (11:59)
[2018-07-21 12:00] LABS: UR EPITHELIAL CELLS >10 /HPF (<10); URINE BACTERIA NEGATIVE /HPF; URINE RBC <10 /HPF (<10); URINE WBC TNTC /HPF (<10)
[2018-07-21] MEDS: VERSED 100 MG in NS 80 ML IV SCH (12:07)
[2018-07-21 12:22] LABS: URINE CASTS GRANULAR PRESENT; URINE SMALL ROUND CELLS RENAL PRESENT; URINE YEAST NONE SEEN
[2018-07-21 12:46] LABS: UR CREAT RANDOM 168.9 mg/dL (14-26); UR PROT RANDOM 131.6 mg/dL
--- NOTE | 2018-07-21 12:50 | EKG Report ---
Test Performed on : 07/21/2018 08:51:55 AM Test Reason : afib Blood Pressure : / mmHG Vent. Rate : 056 BPM Atrial Rate : 059 BPM P-R Int : 000 ms QRS Dur : 158 ms QT Int : 416 ms P-R-T Axes : 000 102 061 degrees QTc Int : 401 ms Undetermined rhythm Right bundle branch block Abnormal ECG When compared with ECG of 20-MAY-2017 08:44, Current undetermined rhythm precludes rhythm comparison, needs review Right bundle branch block is now present Unconfirmed Result
--- NOTE | 2018-07-21 13:17 | Diag Imaging Result Doc PS360 ---
EXAM: CHEST/ABD TUBE PLACEMENT 07/21/2018 HISTORY: CONFRIM ET TUBE AND OG TUBE PLACEMENT TECHNIQUE: AP portable at 1304 COMMENT: There is an endotracheal tube with its tip at thoracic inlet and an NG tube which passes below the diaphragm. There may be some improvement in the basilar opacities present on the previous study of this date at 0923. IMPRESSION: Improved pulmonary edema. Electronically signed by Cody Rice 07/21/2018 1:15 PM
[2018-07-21] MEDS: ZYVOX 600 MG/D5W 600 MG/300 ML IVPB IV SCH (13:20)
--- NOTE | 2018-07-21 13:25 | Diag Imaging Result Doc PS360 ---
EXAM: CT THORAX/ABD/PELVIS W/O CON 07/21/2018 HISTORY: resp failure, septic shock TECHNIQUE: This exam was performed using automated exposure control, adjustment of mA or kV according to patient size, and/or use of iterative reconstruction technique. COMMENT: There are no previous thoracic studies. The abdomen exam is compared with the previous study of 06/05/2017. Thorax: There is an endotracheal tube with its tip well above the soraya. There is emphysematous change as well as bibasilar atelectasis or pneumonia which was not present at the time the previous abdominal study. There is a left pleural effusion. There is cardiomegaly. There is an NG tube in the esophagus passing into the stomach. There is aorticopulmonary window adenopathy with a node measuring over 2 cm in diameter. There is degenerative disc disease throughout the thoracic spine. No acute bony abnormalities are present. ABDOMEN: The stomach is somewhat distended containing fluid. There are no apparent gallstones. The spleen adrenal glands and pancreas are grossly normal in appearance. There are atherosclerotic calcifications in the aorta and renal arteries. There is no evidence of hydronephrosis. There are no gallstones. There is no evidence of bowel obstruction. There is dilatation of the distal abdominal aorta to almost 2.8 cm. On the previous examination of 06/05/2017 this measured 2.7 cm. There is dilatation of both common iliac arteries particularly the right which measures 3 cm in diameter. This is not significantly changed since the previous study. Pelvis: The appendix is not enlarged. There is some stool in the rectum. There is a Veloz catheter in the bladder. There is no evidence of free fluid. There is some heterotopic bone formation over the ischial tuberosities. There is also some osteophyte formation in the left hip. There are degenerative disc and facet changes in the lumbar spine. IMPRESSION: 1. Bibasilar pneumonia. Mediastinal adenopathy. Left pleural effusion. 2. Abdominal aortic aneurysm and dilatation of the common iliac arteries. Electronically signed by Cody Rice 07/21/2018 1:23 PM
--- NOTE | 2018-07-21 13:33 | HISTORY AND PHYSICAL ---
PRIMARY CARE PHYSICIAN: DR. Gavin Walker CHIEF COMPLAINT: Respiratory failure. HISTORY OF PRESENT ILLNESS: Mr. Pagan is an 78-year-old male with a history that is obtained per his son who is at the bedside along with electronic records. The patient started having some cough and shortness of breath on Friday. Essentially this progressed to full blown respiratory failure, and he was brought to the ER by his son. The details of the past 72 hours are a bit unclear, but apparently he has been having some mild shortness of breath with cough followed by incomprehensible moaning on Friday. Yesterday there was a slight improvement, but then yesterday evening he began complaining again of shortness of breath and some right-sided chest pain. This morning the shortness of breath progressed, and he was brought here to the ER. When he got out of the car in the ER parking lot, he almost collapsed. He was brought into the ER and placed on BiPAP, as he was hypoxic with an SpO2 in the 70s. He was also noted to be hypotensive and tachycardic. Subsequently workup revealed very small infiltrates on chest x-ray. His laboratory data showed a profoundly elevated white count, renal insufficiency, lactic acidosis, hyperkalemia and hyponatremia. Since we have seen the patient, his respiratory status has continued to decline, although he has been on BiPAP, breathing 40 to 50 times per minute. With permission from the son, we went ahead and intubated the patient. We have ordered a chest, abdomen and pelvis CT to evaluate for any other sources of sepsis. He is critically ill and will be going to the ICU for further treatment and evaluation. PAST MEDICAL HISTORY: 1. Thrombocytopenia, etiology unknown. 2. Heart valve condition, unclear as to which valve and which condition, but he is [facility]. Apparently he is supposed to have surgery for replacement; however, this has been postponed due to thrombocytopenia evaluation. 3. COPD. 4. History of atrial fibrillation. 5. History of gross hematuria, status post cystoscopy. PAST SURGICAL HISTORY: He has had a cystoscopy with TURP, hernia surgery, apparently a ventral hernia, and knee surgery. He has also had a full-on robotic prostatectomy. SOCIAL HISTORY: He is . He quit smoking around 25 years ago. He lives with his son who is present at the bedside. There is no alcohol use, no drug use. FAMILY HISTORY: Noncontributory. ALLERGIES: No known drug allergies. HOME MEDICATIONS: Apparently he does not take anything at home with the exception of inhalers for COPD. REVIEW OF SYSTEMS: Unable to obtain. PHYSICAL EXAMINATION: VITAL SIGNS: Blood pressure is 123/83, heart rate is 89, respiratory rate is 22, O2 saturation 94% on 100% mechanical ventilation, temperature is 98.9. GENERAL: This is a chronically ill, disheveled appearing 78-year-old male lying in the hospital bed, in moderate to severe respiratory distress. NEUROLOGICAL: The patient will not follow commands at this time. He is moving extremities x4. He is nonverbal at this time. HEENT: Head is atraumatic and normocephalic. His left pupil is equal, round and reactive to light. His right pupil is irregular and minimally reactive. Oral mucosa is dry. NECK: Trachea is midline. There is no JVD. CHEST: Severely diminished bilaterally with expiratory wheezes and occasional crackles. CARDIOVASCULAR: Irregular rate and rhythm. S1 and S2 noted. GASTROINTESTINAL: Slightly firm but nondistended. He does wince to pain with palpation. Bowel sounds are hypoactive. EXTREMITIES: Without edema. Pulses are 1+ bilaterally. DIAGNOSTIC DATA: WBC is 52.81, hemoglobin 13.1, hematocrit 41.2, platelet count 56. INR is 1.69. Most recent ABG on 6 L nasal cannula shows pH of 7.23, CO2 of 42, O2 of 80, bicarbonate 17.4, lactic acid 5.5. Sodium is 129, potassium 5.4, chloride 88, CO2 is 22, anion gap 19, BUN is 56, creatinine 1.9, glucose 146, AST is 124, ALT is 24, alkaline phosphatase 203. ProBNP is 9128. Lactic acid 2.4. ASSESSMENT AND PLAN: 1. Acute hypoxic respiratory failure. Presumably due to a combination of pneumonia and COPD. He is currently intubated. He has been started on broad spectrum antibiotics, breathing treatments, and aggressive pulmonary toilet. We will check daily chest x-rays and consult Dr. Sun with Pulmonary Critical Care. 2. Severe sepsis. Awaiting urinalysis, but he does have pneumonia and massively elevated white count. We are going to scan his chest, abdomen and pelvis to look for source, but he is being treated with broad spectrum antibiotics, and pancultures have been ordered. 3. Acute kidney injury. Presumably prerenal. We are going to check a CT of abdomen and pelvis to evaluate for obstruction. Urinalysis is pending along with urine electrolytes. We will continue IV fluids, avoidance of any nephrotoxins and consult Dr. Perez if any worsening. 4. Chronic thrombocytopenia. Unclear as to the etiology. He does have elevated INR and does not appear to be on Coumadin and mildly elevated liver function tests, so the possibility of liver disease exists. An ultrasound of his abdomen was done about a year ago which did not show anything acute. We will check folate, B12, thyroid function and iron studies. 5. Chronic atrial fibrillation. Awaiting EKG. At this time, anticoagulation would be contraindicated with his thrombocytopenia and critical illness as well as elevated INR. Once he is more stable, an echocardiogram would be advised, so we will order that. Thyroid function is pending and may consider Cardiology consultation. 6. Question of heart valve pathology. Unclear as to which valve and which pathology. We will try to obtain records from the [facility] and/or consult Cardiology. 7. DVT and GI prophylaxis provided with SCDs and Protonix. Further recommendations to follow. Critical care time greater than 1 hour. Dictated by GOMEZ Chanel for Bala William MD cc: MD Delonte Castillo CRNP Cesar Garcia-Rodriguez, MD
[2018-07-21 13:34] LABS: ALLEN TEST YES; BE -6.4 mmoll (-3.0-3.0); BLOOD TYPE ARTERIAL; HCO3-(ACT) 19.9 mmoll (20.0-26.0); METHB 1.5 % (0.0-1.5); O2(CT) 17.4 mL/dL (15.0-23.0); O2HB 95.6 % (95.0-99.0); PO2(98.6) 158 mmHg (60-100); SAMPLE BLOOD; SAO2 99.6 % (95.0-100.0); SRATE 18 BPM; THB 12.7 g/dL (11.5-17.4); TVOL 550 mL
[2018-07-21 13:35] LABS: MODALITY VENTILATOR
[2018-07-21 13:37] LABS: pH(98.6) 7.14 (7.35-7.45)
[2018-07-21 13:38] LABS: PCO2(98.6) 70 mmHg (35-45)
[2018-07-21 14:44] LABS: IRON SATURATION 53 %; TIBC 249 ug/dL; TOTAL IRON 132 ug/dL (53-167); UNBOUND IRON 117 ug/dL (112-346)
[2018-07-21 14:59] LABS: CK INDEX 2.5 (0.0-2.5); CK-MB 9.23 ng/mL (0.0-5.0)
[2018-07-21] MEDS: MERREM 500 MG in NS 50 ML IV SCH ×2 (15:35→21:14)
[2018-07-21] MEDS: XOPENEX NEB INH SCH ×3 (16:15→22:51)
[2018-07-21 17:57] LABS: CK INDEX 2.3 (0.0-2.5); CK-MB 8.82 ng/mL (0.0-5.0)
[2018-07-21] MEDS: LEVOPHED 8 MG in D5 1/2 NS 250 ML IV SCH (23:17)
[2018-07-22] MEDS ORDERED: SODIUM CHLORIDE 0.9% INJ SCH
--- NOTE | 2018-07-22 00:30 | ECHO REPORT ---
ORDER DATE: 07/21/2018 MEASUREMENTS: Left ventricular end-diastolic diameter 4.2. End systolic diameter 3.4. Septal thickness 1.2. Aortic root 3.1. Left atrium 4.3. SUMMARY: 1. Technically difficult study due to limited acoustic window quality. 2. Heavy fibrocalcific changes of aortic valve demonstrated. Aortic valve leaflet mobility is severely reduced. Peak gradient across the aortic valve is 77 mmHg, with a mean gradient of 46 mmHg. Maximum velocity across the aortic valve is 4.4. Calculated aortic valve area by Doppler is 0.7 cm2, suggesting severe aortic stenosis. There is mild aortic regurgitation. Moderate mitral annular calcification is demonstrated. Tricuspid valve is without evidence of structural abnormality, with mild tricuspid regurgitation. The estimated systolic PA pressure by Doppler is 35 to 40 mmHg, suggesting mild pulmonary hypertension. The aortic root is normal in size. 3. Normal left ventricular chamber size, with mild concentric left hypertrophy suggested. Estimated left ventricular ejection fraction appears to be approximately 50%. Regional wall motion analysis is challenging, given limitations of the study. There is mild left atrial enlargement. Moderate right atrial enlargement, and moderate right ventricular enlargement suggested. 4. No pericardial effusion. 5. Inferior vena cava not well-demonstrated. CONCLUSIONS: 1. Very difficult study for interpretation due to limited acoustic window quality. 2. Severe calcific aortic stenosis, with mild aortic regurgitation. 3. Moderate mitral annular calcification. 4. Mild tricuspid regurgitation, with mild pulmonary hypertension by Doppler. 5. Estimated left ventricular ejection fraction approximately 50%. 6. Mild left atrial enlargement. 7. Moderate right-sided chamber enlargement. cc: MD Delonte Lauren CRNP
[2018-07-22] MEDS: ZYVOX 600 MG/D5W 600 MG/300 ML IVPB IV SCH (00:46)
[2018-07-22] MEDS: PROTONIX IV SCH ×2 (00:46→12:18)
[2018-07-22 01:20] LABS: CK INDEX 1.6 (0.0-2.5); CK-MB 5.97 ng/mL (0.0-5.0)
[2018-07-22] MEDS: XOPENEX NEB INH SCH ×6 (03:43→23:15)
[2018-07-22 04:29] LABS: ALLEN TEST YES; BLOOD TYPE ARTERIAL; HCO3-(ACT) 20.1 mmoll (20.0-26.0); METHB 0.9 % (0.0-1.5); O2(CT) 16.7 mL/dL (15.0-23.0); O2HB 91.8 % (95.0-99.0); PO2(98.6) 71 mmHg (60-100); SAMPLE BLOOD; SAO2 94.6 % (95.0-100.0); SRATE 22 BPM; THB 12.9 g/dL (11.5-17.4); TVOL 650 mL; pH(98.6) 7.21 (7.35-7.45)
[2018-07-22 04:31] LABS: MODALITY VENTILATOR
[2018-07-22 04:32] LABS: PCO2(98.6) 56 mmHg (35-45)
[2018-07-22] MEDS: MERREM 500 MG in NS 50 ML IV SCH ×3 (05:00→19:38)
[2018-07-22 05:14] LABS: BASO% 1.1 % (0.0-0.8); HEMATOCRIT 38.8 % (42.0-52.0); HEMOGLOBIN 12.3 g/dL (14.0-18.0); MCH 28.9 PG (27-31); MCHC 31.7 g/dL (33-37); MCV 91.1 FL (81-99); RBC 4.26 XMIL (4.7-6.1); RDW 18.7 % (11.5-14.5); WBC 53.96 X1000 (4.8-10.8)
[2018-07-22 05:24] LABS: PLT 32 X1000 (130-400)
[2018-07-22 05:28] LABS: INR 2.12; PROTIME 25.3 Seconds (11.0-16.0)
[2018-07-22 05:47] LABS: ALB/GLOB RATIO 0.8; ALBUMIN 2.9 g/dL (3.5-5.0); CALCIUM 8.3 mg/dL (8.8-10.2); CREATININE 2.2 mg/dL (0.7-1.2); POTASSIUM 5.4 mmol/L (3.5-5.1); TOTAL BILIRUBIN 0.76 mg/dL (0.20-1.00); TOTAL PROTEIN 6.4 g/dL (6.3-8.3)
[2018-07-22] MEDS: VERSED 100 MG in NS 80 ML IV SCH ×2 (06:22→23:58)
[2018-07-22 06:34] LABS: BANDS 6 % (0-1); LYMPHS 46 % (21-51); MONO 20 % (1-9); NRBC 1 % (0-0); SEGS 28 % (42-75)
--- NOTE | 2018-07-22 07:39 | Diag Imaging Result Doc PS360 ---
EXAM: CHEST-PORTABLE HISTORY: resp failure TECHNIQUE: Portable chest single view COMPARISON: 07/21/2018 FINDINGS: Endotracheal and nasogastric tubes are unchanged. The lungs are well expanded. There are lower lung infiltrates. There are likely small pleural effusions. There is central vascular distention. The overall appearance is similar to the prior exam. IMPRESSION: No interval improvement. Electronically signed by Crescencio Atwood 07/22/2018 7:37 AM
[2018-07-22] MEDS ORDERED: XOPENEX NEB INH PRN (08:43)
[2018-07-22] MEDS ORDERED: TEFLARO 600 MG in NS 250 ML IV SCH (09:00)
[2018-07-22] MEDS: NS 1,000 ML IV SCH ×3 (09:34→19:38)
--- NOTE | 2018-07-22 09:34 | PROGRESS NOTE ---
DATE: 07/22/2018 SUBJECTIVE: The patient continues to be sedated and intubated as per nursing staff, last night. According to the nursing staff overnight, gastric contents from the NG tube appears to be blood tinged, so we ordered an occult blood sample that was positive and confirmed that it was blood, so GI was consulted. Now OG tube has dark green-black secretions. OBJECTIVE: Vital Signs: Temperature 98.5 degrees, heart rate 96, respiratory rate 22. Blood pressure 100/69. O2 saturation 100% on mechanical ventilator. FiO2 of 60%. General Examination: This is a chronically ill-looking, 78-year-old male, lying in bed, in no acute distress. HEENT: Head is normocephalic, atraumatic. Mucous membranes dry. Patient intubated. Neck: No JVD noted. No carotid bruits. No lymphadenopathy. No thyromegaly. Cardiovascular examination: S1, S2 heard. Irregularly irregular. There is an aortic systolic murmur located in the aortic area radiating to the neck. Respiratory Examination: Some rhonchi is an expiratory wheezing noted in both pulmonary millan mostly noted in both bases. Patient is not using any accessory muscles or having work of breathing. Abdomen is slightly firm, nondistended. Bowel sounds hypoactive but present. No signs of peritoneal irritation. Extremities: No edema, clubbing, or cyanosis. Peripheral pulses present in both legs but faint. Neurological: The patient is sedated and intubated. IMAGING: CT of the abdomen, chest, and pelvis done yesterday showed bibasilar pneumonia with mediastinal adenopathy left pleural effusion. Abdominal aortic aneurysm and dilatation of the common iliac arteries. Echocardiogram Doppler basically shows severe calcific aortic stenosis with mild aortic regurgitation with estimated left ventricular ejection fraction of 50%. LABORATORY DATA: White cell count from today shows 53.96, hemoglobin 12.3, hematocrit 38.8, platelets 32,000 with ABG that shows pH 7.21 with pCO2 of 56, PO2 of 71. That sample was taken on ventilator at 60% FiO2. BMP shows creatinine 2.2. Sodium 130, potassium 5.4. BUN 70. AST 164. ALT 68. ASSESSMENT AND PLAN: 1. Acute hypoxemic respiratory failure most likely secondary to community- acquired pneumonia. Patient is intubated. Patient receiving meropenem and Zyvox but, because Zyvox can cause further thrombocytopenia, we changed it for Teflaro. We will continue to monitor this patient closely. Pulmonary is following this patient. We are doing daily chest x-rays. 2. Septic shock secondary to community-acquired pneumonia. Patient is still requiring small doses of vasopressors; in this case, it is Levophed at 5 mcg/hour. We will continue to try to wean off vasopressors today. 3. Acute kidney injury most likely prerenal secondary to low blood pressure. We did not see anything abnormal in the CT of the abdomen and pelvis. Urine output is getting lower, so I prefer to start IV fluids on this patient but will be cautious because of this most likely aortic stenosis that the patient has. 4. Chronic thrombocytopenia. [facility] [place] by Dr. Kunal Cook. I do not know exactly what conditions that he has. His white cell count is pretty much elevated with normal hemoglobin but low platelets. In any case, we will try to get some records from his office. 5. Aortic stenosis. Son, who is at bedside, informed me that the patient has been seen by a Cardiovascular Surgeon, and he is suppose to have aortic valve replacement. His primary osha inspector is Dr. Gordo Lorenz at [facility] [place]. He is working with his lighter to get his platelets up in order to do that surgery. Apparently , he had an appointment this week with them. At this time, we will continue to monitor this patient. 6. Chronic atrial fibrillation. At this point, heart rate is controlled. I think because of his thrombocytopenia, anticoagulation is contraindicated as well as his elevated INR. I think for this condition and for aortic stenosis, we will consult Cardiology. 7. Gastrointestinal bleeding. Apparently, his secretions from the OG tube were bloody so GI has been consulted, and we will see what they have to say. 8. Gastrointestinal prophylaxis. Patient is on Protonix. 9. Deep vein thrombosis prophylaxis. Patient is on sequential compression devices. Anticoagulation, I think, is contraindicated in this patient. cc: Bala William MD MTDD
[2018-07-22] MEDS: ATROVENT NEB INH SCH ×4 (11:08→23:15)
--- NOTE | 2018-07-22 13:50 | GASTROENTEROLOGY CONSULTATION ---
DATE: 07/22/2018 REASON FOR CONSULT: blood in NGT HISTORY OF PRESENT ILLNESS: Mr. Pagan is an 78-year-old male with COPD, afib, thrombocytopenia, who presented with acute hypoxic respiratory failure and septic shock thought to be related to PNA requiring intubation and ICU admission. Last evening, he was noted to have dark bilious fluid suctioned from NGT tube that tested positive for blood. Hgb dropped from 13.1 to 12.3. His platelets were noted to be 53K. Per records, patient does not take any other medications beside inhalers for his COPD. History obtained from chart given intubation/sedation. PAST MEDICAL HISTORY: COPD, chronic thrombocytopenia, , AFIB, h/o hematuria PAST SURGICAL HISTORY: TURP, knee surgery, prostatectomy, incarcerated right inguinal hernia with small bowel obstruction SOCIAL HISTORY: Prior smoker; no alcohol or drug use FAMILY HISTORY: Reviewed, noncontributory. ALLERGIES: No known drug allergies. HOME MEDICATIONS: Inhalers REVIEW OF SYSTEMS: Unable to obtain. PHYSICAL EXAMINATION: VS: T 97.5 HR 114 RR 22 BP 82/54 94% on 60% FiO2 GEN: intubated, sedated HEENT: anicteric, ET tube in place, NGT with bilious fluid in tubing NECK: no JVD, LAD CARDIAC: tachycardic, irregular, no murmurs PULM: vented breath sounds ABD: soft NT/ND, BS present, no rebound or guarding EXT: no cce, WWP NEURO: sedated DIAGNOSTIC DATA: White blood cells 53.96, hemoglobin 12.3, hematocrit 38.8, platelets 32. Sodium 130, potassium 5.4, chloride 95, carbon dioxide 18, BUN 70, creatinine 2.2, glucose 82. INR 2 lactic acid 5.5. Sodium is 129, potassium 5.4, chloride 88, CO2 is 22, anion gap 19, BUN is 56, creatinine 1.9, glucose 146, AST is 124, ALT is 24, alkaline phosphatase 203. Noncon CT C/A/P IMPRESSION: 1. Bibasilar pneumonia. Mediastinal adenopathy. Left pleural effusion. 2. Abdominal aortic aneurysm and dilatation of the common iliac arteries. ASSESSMENT AND PLAN: Mr. Pagan is an 78-year-old male with COPD, afib, thrombocytopenia, who presented with acute hypoxic respiratory failure and severe sepsis thought to be related to PNA requiring intubation and ICU admission. GI consulted to evaluate for UGIB. Patient had bilious fluid that tested positive for blood. No galen bleeding noted. He is thrombocytopenic. Ddx includes esophagitis, gastritis, duodenitis, PUD, and NGT trauma. No bowel movements at this point. Elevated AST and ALP; liver and gallbladder unremarkable on CT. Suspect extrahepatic since CK and CK-MB elevated as well. Normal bilirubin, INR 2.0 and ALT. #UGIB - recommend IV PPI BID, trend H/H daily, transfuse prn goal hgb 7-8 - trend plts daily, goal plts 50K with active GI bleeding - avoid blood thinners, MICHEAL/SCDs #Abnormal LFTs: no GROUP HOME; not consistent with acute viral hepatitis or AIH - avoid hepatotoxic meds; trend LFTs daily #Acute hypoxic respiratory failure: PNA/COPD; pulm following #Septic shock: 2/2 to ?PNA #Chronic thrombocytopenia: as above; no splenomegaly on imaging #Leukocytosis: 2/2 to infection vs ?leukemoid reaction #: cardiology following Will follow with you. Please call with questions or concerns [facility]
[2018-07-22] MEDS ORDERED: LASIX IV ONE (15:26)
--- NOTE | 2018-07-22 19:25 | CONSULTATION ---
DATE OF CONSULTATION: 07/22/2018 REQUESTING PROVIDER: GOMEZ Pulido. REASON FOR CONSULTATION: Respiratory failure and ventilator. HISTORY OF PRESENT ILLNESS: This is an 78-year-old with a medical history of chronic obstructive pulmonary disease, chronic atrial fibrillation, chronic thrombocytopenia, benign prostatic hyperplasia, aortic stenosis, inguinal hernia, and degenerative osteoarthritis. He presented to the ER yesterday morning with unresponsiveness and respiratory distress. In the ER he was hypoxic with tachypnea, tachycardia and hypotension. Chest x-ray revealed mild increased interstitial markings in the lower lungs. Labs showed white blood cells 50.81, platelets 56, pH of 7.23, HCO3 of 17.4, lactate 5.50, Sodium 129, potassium 5.4, chloride 88, BUN 56, creatinine 1.9, Pro-BNP 9128 and TSH 14.41. His respiratory status kept declining, and eventually he was intubated in the ER. CT thorax, abdomen and pelvis without contrast revealed bibasilar pneumonia, mediastinal adenopathy, left pleural effusion, abdominal aortic aneurysm, and dilation of the common iliac arteries. He has been admitted to the ICU with acute hypoxic respiratory failure, septic shock, pneumonia, and acute kidney injury. At the time of my examination, the patient is intubated and sedated. There is no family at the bedside. All the information is obtained from the e-chart. PAST MEDICAL AND SURGICAL HISTORY: 1. Chronic obstructive pulmonary disease on DuoNeb at home. 2. Chronic atrial fibrillation, not on anticoagulation. 3. Chronic thrombocytopenia, etiology unknown. 4. Benign prostatic hyperplasia with significant trilobar hypertrophy and urinary retention, status post robotic-assisted laparoscopic simple prostatectomy on 05/28/2017 and cystoscopic exam with clot irrigation and fulguration of bleeding area in the prostatic urethra on . 5. Aortic stenosis, [facility] [place]. Aortic valve replacement is pending due to thrombocytopenia. 6. Incarcerated right inguinal hernia with small bowel obstruction, status post repair of a strangulated right femoral hernia and small bowel resection with primary anastomosis performed by Dr. Anselmo Watts on 12/14/2016. 7. Degenerative osteoarthritis of the right knee, status post right total arthroplasty by Dr. Aracelis Arreola on 04/28/2013. SOCIAL HISTORY: The patient lives with his son. He is a former smoker and quit smoking about 25 years ago. No alcohol or illicit drug use. FAMILY HISTORY: Positive for prostate cancer in a brother. ALLERGIES: No known drug allergies. REVIEW OF SYSTEMS: Unable to be obtained. PHYSICAL EXAMINATION: VITAL SIGNS: Temperature 98.5, blood pressure 91.63, pulse rate 100, respiratory rate 22, oxygen saturation 96% on AC mechanical ventilator with spontaneous rate 22, FiO2 60%, TV 650, and PEEP 5.0. GENERAL: Intubated. No acute respiratory distress. HEENT: Atraumatic. Trachea midline. ET tube and NG tube in place. Mucosa pink and dry. RESPIRATORY: Chest expansion equal bilaterally. Diminished breathing sounds bibasilarly. Rhonchi and basilar inspiratory crackles with the left side worse than the right side. CARDIOVASCULAR: Irregularly irregular, S1 and S2 with murmur noted. GASTROINTESTINAL: Bowel sounds present in all 4 quadrants. Slightly firm but nondistended. EXTREMITIES: No pedal edema, cyanosis or clubbing. Dorsalis pedis 1+ bilaterally. NEUROLOGIC: Sedated, unresponsive to physical stimuli. IMAGING: Chest x-ray revealed stable lower lung infiltrates, likely small pleural effusions, and central vascular distention. There is no interval improvement. LAB DATA: White blood cells 53.96, hemoglobin 12.3, hematocrit 38.8, platelets 32. Sodium 130, potassium 5.4, chloride 95, carbon dioxide 18, BUN 70, creatinine 2.2, glucose 82. ABG: pH of 7.21, pCO2 of 56, pO2 of 71, HCO3 20.1, base excess -6, and oxyhemoglobin 91.8. ASSESSMENT: This is an 78-year-old male with a medical history of chronic obstructive pulmonary disease, chronic atrial fibrillation, chronic thrombocytopenia, benign prostatic hyperplasia, aortic stenosis, incarcerated right inguinal hernia with small bowel obstruction, and degenerative osteoarthritis of the right knee. He has been admitted to the intensive care unit with acute hypoxic respiratory failure, septic shock, community-acquired pneumonia, and acute kidney injury. 1. Acute hypoxemic, hypercapnic respiratory failure. 2. Septic shock. 3. Chronic obstructive pulmonary disease. 4. Acute kidney injury. PLAN: 1. Continue on mechanical ventilator, and will start weaning trials per protocol. 2. Continue broad-spectrum antibiotics and bronchodilators. 3. Continue vasopressors and try to wean off when appropriate. 4. Follow up with ABG, chest x-ray, CBC and CMP. 5. Follow up with sputum culture, urine culture and blood culture. 6. Dr. Perez from nephrology is on board. 7. Continue GI and DVT prophylaxis. Thank you for the courtesy of this consult. Dictated by GOMEZ Hernandes for Aleks Sun MD cc: GOMEZ Hernandes MD [facility]
[2018-07-22] MEDS ORDERED: TEFLARO 300 MG in NS 250 ML IV SCH (21:00)
[2018-07-22] MEDS: LEVOPHED 8 MG in D5 1/2 NS 250 ML IV SCH (23:29)
[2018-07-23] MEDS: PROTONIX IV SCH ×2 (00:30→12:02)
[2018-07-23] MEDS: ATROVENT NEB INH SCH ×3 (02:56→11:37)
[2018-07-23] MEDS: XOPENEX NEB INH SCH ×3 (02:57→11:37)
--- NOTE | 2018-07-23 03:29 | NEPHROLOGY CONSULTATION ---
DATE: 07/22/2018 REASON FOR CONSULTATION: Acute kidney injury. HISTORY OF PRESENT ILLNESS: Mr. Pagan is an 78-year-old white male, who is currently sedated and intubated on the ventilator. His son is at the bedside. He had some problems with increasing shortness of breath, cough, and perhaps altered sensorium. He had to come to the emergency room, but collapsed in the parking lot. He was brought into the emergency room, where he was hypoxemic, hypotensive, and tachycardic. He was treated with BiPAP and evaluated. He was found to be hypotensive, hypoxemic, leukocytosis, tachycardia, etc. His chest x-ray performed at the time found small bibasilar infiltrates. He was admitted to the hospital and treated for presumed sepsis with IV fluids, vasopressor support, broad-spectrum antibiotics, ventilator support, etc. In that context, his urine output has decreased, and his BUN and creatinine have been rising, 1.9 on presentation, and 2.2 today. Baseline creatinine 1.0 to 1.5. He does have a history of acute kidney injury in the past. PAST MEDICAL HISTORY: As above. He also has a history of severe aortic stenosis, for which he has been making preparations for a possible TAVR. He also has a history of atrial fibrillation and COPD. CURRENT MEDICATIONS: Epinephrine, norepinephrine, Versed, Merrem, Xopenex, Protonix, Atrovent, Teflaro. ALLERGIES: None. SOCIAL HISTORY: He is . Attended by his son. A former smoker. FAMILY HISTORY: Otherwise noncontributory. REVIEW OF SYSTEMS: Otherwise noncontributory. PHYSICAL EXAMINATION: Vital Signs: Blood pressure 83/47, heart rate 108. Afebrile. Exam at approximately 1700. General: He is an elderly man, intubated and sedated. Unresponsive. Skin: Warm and dry. Somewhat pale. Pupils are unequal, the right one is irregular. I think corneal arcus is present. Conjunctivae are pale. Oropharynx is clear and dry. Neck: Supple. Trachea is midline. Neck veins are not distended. Heart: PMI is nondisplaced. Regular rate and rhythm, without gallops or murmurs. Lungs: Have equal breath sounds. No crackles or wheezes are audible anteriorly. Abdomen: Soft, nontender. Decreased bowel sounds. No organomegaly. Extremities: Have no edema, clubbing, or cyanosis. IMPRESSION: Oliguric acute kidney injury, presumably secondary to sepsis. He is oliguric, but has no emergent indications for hemodialysis today. I have counseled his son regarding the severity of his illness, and its relationship to his sepsis. We will continue to monitor daily, and he may well require dialysis within the next 24 to 48 hours. The son understands this. I have reviewed his medications, and no adjustments are required at this time. Thank you for the consult. cc: Jesús Perez MD
[2018-07-23] MEDS: MERREM 500 MG in NS 50 ML IV SCH (04:37)
[2018-07-23 04:41] LABS: ALLEN TEST YES; BE -12.9 mmoll (-3.0-3.0); BLOOD TYPE ARTERIAL; HCO3-(ACT) 14.8 mmoll (20.0-26.0); METHB 1.2 % (0.0-1.5); O2(CT) 17.9 mL/dL (15.0-23.0); O2HB 93.1 % (95.0-99.0); PO2(98.6) 80 mmHg (60-100); SAMPLE BLOOD; SAO2 96.2 % (95.0-100.0); SRATE 22 BPM; THB 13.6 g/dL (11.5-17.4); TVOL 650 mL
[2018-07-23 04:42] LABS: pH(98.6) 7.04 (7.35-7.45)
[2018-07-23 04:43] LABS: MODALITY VENTILATOR; PCO2(98.6) 69 mmHg (35-45)
[2018-07-23] MEDS: NEO-SYNEPHRINE 50 MG in NS 250 ML IV SCH ×2 (05:47→10:28)
[2018-07-23] MEDS ORDERED: NS 1,000 ML IV ONE (06:22)
[2018-07-23 06:25] LABS: EOS# 0.01 X1000 (0.0-0.7); HEMATOCRIT 41.2 % (42.0-52.0); HEMOGLOBIN 13.1 g/dL (14.0-18.0); MCH 29.4 PG (27-31); MCHC 31.8 g/dL (33-37); MCV 92.4 FL (81-99); PLT 44 X1000 (130-400); RBC 4.46 XMIL (4.7-6.1); RDW 19.8 % (11.5-14.5); WBC 71.01 X1000 (4.8-10.8)
[2018-07-23] MEDS: NS 1,000 ML IV SCH ×2 (06:38→08:13)
[2018-07-23] MEDS: LEVOPHED 8 MG in D5 1/2 NS 250 ML IV SCH ×2 (06:57→11:44)
[2018-07-23] MEDS: SODIUM BICARBONATE 8.4% IV PUSH SCH ×3 (06:57→07:45)
[2018-07-23 07:00] LABS: LYMPHS 22 % (21-51); SEGS 28 % (42-75)
--- NOTE | 2018-07-23 07:25 | Diag Imaging Result Doc PS360 ---
EXAM: CHEST-PORTABLE INDICATION: resp failure TECHNIQUE: One view COMPARISON: 07/22/2018 FINDINGS: Support tubes and lines are in stable positions. Bilateral diffuse infiltrates most compatible with pulmonary edema are approximately stable. No new consolidation is identified. Cardiac silhouette is stable. IMPRESSION: Stable chest. Electronically signed by Kunal Levy 07/23/2018 7:22 AM
[2018-07-23] MEDS ORDERED: NS 250 ML ONE (07:59)
[2018-07-23] MEDS ORDERED: VITAMIN K 10 MG in NS 50 ML IV ONE (08:29)
[2018-07-23 09:11] LABS: INR 2.63; PROTIME 29.9 Seconds (11.0-16.0)
--- NOTE | 2018-07-23 09:14 | PROGRESS NOTE ---
DATE: 07/23/2018 OVERNIGHT EVENTS: He was tachycardic. He was persistently hypotensive and a second pressor had to be added. He was also hypoxic with SpO2 in 80s. His ABG detected that he had severe acidosis combined with metabolic and respiratory. SUBJECTIVE: He is intubated and on midazolam drip. The patient's son is at bedside. Plan of care was discussed with him. OBJECTIVE: Vital Signs: Temperature 98.9, pulse 110 per minute, blood pressure 105/70. Second pressor was added. He is saturating high 80s/low 90s on 100% mechanical ventilation. PHYSICAL EXAMINATION: General: Obtunded. Does not appear in any acute distress. He is intubated. He is intubated. His NG tube under intermittent suction which has greenish NG tube output. He also has a urine catheter in place. Eyes: Pupils: Left reacting to light adequately; right is a surgical dilated pupil. Lungs: Air entry bilaterally equal. Coarse breath sounds. No wheeze, rhonchi. Crackles diffuse bilaterally. S1, S2 tachycardic and could not really appreciate heart sounds as he is tachycardic with continuous mechanical breath sound, but no appreciable rub or gallop. There is a systolic murmur at the base of the heart. Abdomen flat. Hypoactive bowel sounds. Tympanic to percussion with firmness on the left lower quadrant. He has a urine catheter in place. No lower extremity edema. LABORATORY DATA: Labs are suggestive of worsening leukocytosis. Normal hemoglobin. Persistent thrombocytopenia. pH of 7.0, pCO2 of 69, and pO2 of 80 on 100% FiO2. He does not have any BMP today. Microbiology: Sputum culture is growing gram-negative rods. ASSESSMENT AND PLAN: 1. Acute hypoxic respiratory failure secondary to bilateral pneumonia. Continue mechanical ventilation as per Pulmonology recommendation. Continue intravenous meropenem and intravenous ceftaroline. 2. Septic shock secondary to bilateral pneumonia. Continue intravenous antibiotics. Continue intravenous epinephrine and intravenous phenylephrine which have already been ordered. Apparently, the patient was not started on intravenous norepinephrine to begin with. I will consider adding intravenous norepinephrine in the future if required. 3. Acute kidney [id number] kidney disease, stage 3, likely because of septic shock. Continue intravenous fluids. Nephrology on board. 4. Severe aortic stenosis, aware. 5. He was supposed to get aortic valve replacement. His primary software validation engineer [facility] [place]. 6. Severe thrombocytopenia. He has been seen at [facility] by Dr. Kunal Cook. I will consult the tube cutter operator in this hospital for his chronic thrombocytopenia and severe leukocytosis, which could be leukemoid reaction. 7. Chronic atrial fibrillation, currently heart rate controlled. He is not a candidate for anticoagulation considering his severe thrombocytopenia and elevated INR. 8. Upper gastrointestinal bleed based on bloody secretions from his gastric tube. Continue intravenous Protonix. GI has been consulted. 9. Deep venous thrombosis prophylaxis; sequential compression devices. 10. Hyponatremia, hyperkalemia, metabolic acidosis due to acute kidney injury due to prerenal acute renal failure. Nephrology on board. DISPOSITION: More than 30 minutes of critical care time was spent in taking care of this patient. The patient's son, who is next of kin, has power of senior trial attorney and was at bedside. I explained to him about the patient's critical condition and him requiring multiple life support measures and that he has high chance of mortality. He wanted the code status to be FULL. I also informed him that I will go ahead and consult Palliative Care for goals of care discussion. All of his questions were answered at bedside. cc: Kenneth Lopez MD
[2018-07-23 09:43] LABS: ALB/GLOB RATIO 0.9; ALBUMIN 2.9 g/dL (3.5-5.0); CALCIUM 8.4 mg/dL (8.8-10.2); CREATININE 3.9 mg/dL (0.7-1.2); TOTAL BILIRUBIN 1.24 mg/dL (0.20-1.00); TOTAL PROTEIN 6.1 g/dL (6.3-8.3)
[2018-07-23 09:49] LABS: POTASSIUM 6.6 mmol/L (3.5-5.1)
[2018-07-23] MEDS ORDERED: D50W SYRINGE ONE (09:54)
[2018-07-23] MEDS ORDERED: LACTULOSE PO SCH (10:00)
--- NOTE | 2018-07-23 10:02 | Diag Imaging Result Doc PS360 ---
EXAM: CHEST-PORTABLE 07/23/2018 HISTORY: PICC placement TECHNIQUE: AP portable at 0944 COMMENT: There is a right-sided PICC line with its tip in the superior vena cava, an endotracheal tube with its tip at the thoracic inlet and an NG tube which appears to pass below the diaphragm. There is diffuse interstitial opacity in the lungs bilaterally particularly in the lower lung millan. There has been some slight improvement with regard to the left lower lobe since 07/23/2018 at 0525. IMPRESSION: Improved pulmonary edema. Electronically signed by Cody Rice 07/23/2018 9:59 AM
[2018-07-23 10:06] VITALS: BP 62/41
[2018-07-23] MEDS ORDERED: D50W SYRINGE IV ONE (10:06)
[2018-07-23] MEDS ORDERED: CALCIUM GLUCONATE 4.65 MEQ in NS 50 ML IV ONE (10:30)
--- NOTE | 2018-07-23 10:37 | PROGRESS NOTE ---
DATE: 07/23/2018 I had a discussion with the palliative care nurse, and I went to see patient's son again at bedside. I, again, explained to him about his critical condition and worsening lab parameters including multiorgan failure with worsening kidney function, elevated INR, so the liver function was also worsened. After discussing with the patient's son, who has a power of director of curriculum and instruction, he decided that he wanted to make the patient comfort measures only. I explained to him that this would mean that we would stop any aggressive medications in terms of antibiotics and other life- prolonging measures and of course would be directed towards making him pain-free , anxiety-free, and comfortable. He wanted to keep his ventilators on at least for next 2 hours or so, until his brothers come by. After that, he would discuss with his brother and would likely decide if he would like to withdraw the ventilator care as well. I am keeping him on pressors to support him until his family arrives, and I am discontinuing antibiotics and other medications. His code status is DNR level 1. His son had previously decided to not give him any chest compression or shocks if his conditions worsen. More than 30 minutes was spent in describing patient's critical condition to his son and discussing code status and goals of care. I had also ordered bicarbonate drip and lactulose for his hyperkalemia. cc: Kenneth Lopez MD MTDBalbir
[2018-07-23] MEDS ORDERED: SODIUM BICARBONATE 8.4% 150 MEQ in D5W 1,000 ML IV SCH (11:00)
[2018-07-23 12:25] LABS: CALCIUM 8.4 mg/dL (8.8-10.2); CREATININE 4.2 mg/dL (0.7-1.2)
[2018-07-23 12:37] LABS: POTASSIUM 7.8 mmol/L (3.5-5.1)
[2018-07-23] MEDS ORDERED: MORPHINE IV PRN (13:09)
[2018-07-23] MEDS ORDERED: ATIVAN IV PRN (13:12)
--- NOTE | 2018-07-23 13:31 | PROGRESS NOTE ---
DATE: 07/23/2018 ADDENDUM: I went to the bedside and discussed with multiple family members about the patient's clinical condition. I explained to them about his worsening hemodynamic parameters, worsening kidney function, worsening respiratory status and coagulopathies indicating multi organ failure. I also discussed with them that he is at high risk for mortality considering his multi organ failure and septic shock and acute hypoxic hypercarbic respiratory failure. After understanding his critical illness, the patient's family all in agreement decided to terminally extubate him and direct our care towards making him more comfortable and make him comfort measures only. I explained to them that taking the breathing tube out would essentially mean we would allow disease to take its natural course, and it could mean that he would pass away very soon. After family's consent, I decided to terminally extubate him. I have conveyed my discussion to the nursing team. I will continue him on midazolam drip and will slowly taper it off, and we will give him p.r.n. morphine for comfort measures. cc: Kenneth Lopez MD
--- NOTE | 2018-07-23 13:42 | GASTROENTEROLOGY PROGRESS NOTE ---
DATE: 07/23/2018 He is currently intubated and vented. His NG tube suction is showing bilious drainage. I spoke to the patient's son at bedside. Vitals were reviewed. I spoke with the patient's nursing staff. PLAN: The plan is for palliative care and terminal extubation. I offered my assistance and help in any way the family needs. We will be available if needed. I spoke to the patient's son at bedside. Please call us with any further questions. We will sign off at this time. cc: Sid Sam MD
--- NOTE | 2018-07-23 19:07 | NEPHROLOGY PROGRESS NOTE ---
DATE: 07/23/2018 SUBJECTIVE: He is unresponsive, on the ventilator. OBJECTIVE: Vital Signs: At the time of my exam at approximately 0600, blood pressure was 85/63, heart rate 92, respirations 22. Afebrile. Intake 3.3 liters, output 265 mL. General: Unresponsive. Skin is pale and dry. HEENT: Conjunctivae are pink. Neck: Neck veins are not distended. Heart: Regular. Lungs: Equal with a few fine crackles diffusely. Abdomen: Quiet. Extremities: Minimal edema. No clubbing or cyanosis. IMPRESSION: Acute kidney injury. No recovery thus far. His labs were pending at the time of my initial encounter but became available midmorning. Hyperkalemia that progressed from 6.6 to 7.8. Complicated by severe metabolic acidosis and respiratory insufficiency. He already has very high minute ventilation, so I will defer any changes to pulmonary. PLAN: Since my exam, a decision to terminally extubate has been made. I certainly support this, as his likelihood of survival is negligible. cc: Jesús Perez MD
--- NOTE | 2018-07-24 07:59 | DISCHARGE SUMMARY ---
ADMISSION DATE: 07/21/2018 DISCHARGE DATE: 07/23/2018 SUMMARY TIME OF : 1:45 p.m. DATE OF : 07/23/2018 CAUSE OF : Pneumonia. DISCHARGE DIAGNOSES: 1. . 2. Acute hypoxic respiratory failure. 3. Bilateral pneumonia needing mechanical ventilation. 4. Septic shock secondary to bilateral pneumonia. 5. Acute kidney injury on chronic kidney disease, stage 3. 6. Hyperkalemia. 7. Severe metabolic and respiratory acidosis leading to acute hypoxic hypercarbic respiratory failure. 8. Severe thrombocytopenia. 9. Chronic atrial fibrillation. 10. Upper gastrointestinal bleed. 11. Hyponatremia. 12. Hyperkalemia. OTHER DIAGNOSES: 1. History of chronic thrombocytopenia. 2. History of aortic stenosis. 3. History of chronic obstructive pulmonary disease. 4. History of atrial fibrillation. 5. History of hematuria in the past with cystoscopy. CONSULTATION DURING HOSPITALIZATION: 1. Dr. Sun, Pulmonology. 2. Dr. Perez, Nephrology. 3. Dr. Méndez, Hematology. 4. Dr. Sam, Gastroenterology and Palliative Care. HOSPITAL COURSE SUMMARY: Mr. Pagan is an 78-year-old man, who came in with complaints off shortness of breath, respiratory distress. On arrival, he was found to have bilateral pneumonia. During the ER stay, his respiratory distress had significantly worsened needing BiPAP and later on requiring intubation. He remained intubated. However, his condition did not improve, and he went into bilateral pneumonia with acute respiratory failure. He was on intravenous antibiotics, and was on 100% FIO2, because he was also started on multiple pressors. However, his septic shock and respiratory failure did not respond, and he went into multiorgan failure including acute renal failure, acute hepatic failure, as evidenced by coagulopathy. The patient's son, who was the surrogate decision-maker, was informed off the patient's critical condition and understanding the high mortality associated with multiorgan failure, the patient's son had decided to make him comfort measures only. Later on, once other family members came by, the patient's son had decided to extubate the patient and give him medications, which would make him more comfortable and anxiety free. So the orders for terminal exudate extubation were placed, following which patient's soon . I went to the bedside, evaluated the patient, and pronounced him . More than 30 minutes were spent in discharging and preparing discharge summary for this patient. I had repeatedly informed patient his other nephew, sons, and other family members about his critical condition, and I had answered all of their questions satisfactorily. cc: Kenneth Lopez MD
== END 2018-07-23 13:39 | disposition expired | DRG 871 ==
LOC: ED 08:49 → SUATTDRO 12:23 → EDIPHOLD 12:23 → ICU 15:09
PROVIDERS: ATTEND Internal Medicine
CPT/HCPCS: 31500; 36569; 51702; 70450; 71010; 71045; 71250; 74000; 74018; 74176; 80048; 80053; 80061; 81001; 82271; 82533; 82550; 82553; 82570; 82607; 82728; 82746; 82805; 82948; 83036; 83540; 83550; 83605; 83721; 83735; 83880; 84156; 84300; 84439; 84443; 84484; 85025; 85610; 85730; 86850; 86900; 86901; 87040; 87070; 87077; 87088; 87184; 87186; 87205; 87275; 87276; 87804; 93005; 93306; 94003; 94640; 94762; 96361; 96365; 96366; 96367; 96368; 96375; 99285; 99291; A9270; C9113; J0610; J0712; J1940; J2020; J2060; J2185; J2250; J2370; J2543; J3370; J3430; J7030; J7040; J7050; J7070; P9035; S0164; XXXXX